=== PATIENT | female | born 1970 | race Caucasian/White ===

== ENCOUNTER 2020-10-20 10:32 | Inpatient (IN) ==
[2020-10-20] MEDS ORDERED: INSULIN REGULAR, HUMAN 1 UNIT/0.01 ML UNIT IV ONE (10:50)
[2020-10-20] MEDS ORDERED: 0.9 % SODIUM CHLORIDE 1,000 ML IV ONE ×2 (10:50→12:15)
[2020-10-20] MEDS ORDERED: ONDANSETRON 4 MG/2 ML VIAL IV ONE (10:52)
[2020-10-20] MEDS ORDERED: METOCLOPRAMIDE 10 MG/2 ML VIAL IV ONE (11:20)
--- NOTE | 2020-10-20 11:23 | Emergency Department Note ---
Nausea/Vomiting/Diarrhea HPI General Chief complaint: Nausea/Vomiting/Diarrhea Stated complaint: n/v, diabetic Time Seen by Provider: 10/20/20 10:50 Source: patient and EMS Mode of arrival: EMS Limitations: no limitations History of Present Illness HPI Narrative: Narrative: 50-year-old female comes in complaining of a 24-hour history of nausea vomiting and small amount of diarrhea. She has not been able to take her home medicines including insulin. Denies fever. Has some belly pain. Unknown trigger Related Data Home Medications Medication Instructions Recorded Confirmed ascorbic acid-collagen 1 cap PO QDAY 04/28/20 07/17/20 metformin 500 mg tablet 1,000 mg PO BID tab 07/17/20 10/20/20 paroxetine HCl 20 mg tablet 40 mg PO QDAY tab 07/17/20 10/20/20 hydroxyzine HCl 25 mg PO BID PRN 10/20/20 10/20/20 Previous Rx's Medication Instructions Recorded losartan 50 mg tablet 50 mg PO QDAY #90 tab 04/28/20 gabapentin 300 mg capsule 600 mg PO TID 30 Days #180 cap 05/15/20 blood sugar diagnostic #100 each 07/17/20 blood-glucose meter #1 each 07/17/20 empagliflozin 10 mg tablet 10 mg PO QAM #30 tab 07/17/20 ezetimibe 10 mg tablet 10 mg PO QDAY #30 tab 07/17/20 pregabalin 75 mg capsule 75 mg PO BID #60 cap 07/17/20 bupropion HCl 150 mg tablet,12 hr 150 mg PO BID #180 each 09/22/20 sustained-release insulin degludec 100 unit/mL (3 20 unit SUB-Q QHS #15 ml 09/25/20 mL) subcutaneous pen Allergies Allergy/AdvReac Type Severity Reaction Status Date / Time semaglutide [From Ozempic] Allergy Severe Vomiting Verified 10/20/20 10:35 lisinopril AdvReac Unknown Cough Verified 10/20/20 10:35 Rgylhjp-[id number]-Jwh Reductase AdvReac Unknown Cold Sweats Verified 10/20/20 10:35 Inhibitor Review of Systems ROS ROS Narrative: Narrative: All systems ED: reviewed and negative except as stated. PFSH Narrative Patient History Narrative: Narrative: Medical/Surgical/Family History All Active Problems (Updated 10/20/20 @ 13:05 by Lucien Alberto MD) DKA (diabetic ketoacidoses) (Acute) Gastroenteritis (Acute) Acute hyperkalemia (Acute) Acute kidney injury (Acute) Acute pancreatitis (Acute) Numbness in both hands (Acute) Pyogenic granuloma (Acute) Kidney stones (Acute) Joint pain (Acute) High cholesterol (Acute) Hypertension (Acute) Type 2 diabetes mellitus (Acute) Depression (Acute) Anxiety (Acute) Cellulitis of second toe of right foot (Acute) Medical History Anxiety (Acute) Depression (Acute) High cholesterol (Acute) Hypertension (Acute) Joint pain (Acute) Kidney stones (Acute) Pyogenic granuloma (Acute) Type 2 diabetes mellitus (Acute) Surgical History History of 2 sections (Acute) 1994, 1997 History of knee surgery (Acute ~1983) History of removal of calculus of renal pelvis through percutaneous nephrostomy (Acute) History of tonsillectomy (Acute ~1985) History of total abdominal hysterectomy (Acute ~2000) still have ovaries Family History Father Esophageal cancer Type 2 diabetes mellitus High blood pressure Grandfather Mesothelioma Maternal Grandmother Dementia Paternal Congestive heart failure Maternal Mother Migraines Social History Smoking Status: Never smoker Alcohol Intake Frequency: does not drink Substance Use: marijuana Exam Narrative Narrative: Narrative: Overweight female some distress secondary to nausea and vomiting. Normocephalic atraumatic. No nasal discharge or congestion. Oropharynx with dry buccal mucosa. Neck is supple without lymphadenopathy or thyromegaly. Heart is regular rhythm but mildly tachycardic. Lungs are clear to auscultation bilaterally without wheezes rales rhonchi or respiratory distress. Abdomen is soft diffusely tender. No pedal edema. She is alert oriented but distraught secondary to her medical situation General Limitations: no limitations Course Vital Signs Vital signs: Vital Signs Temperature 97.7 F 10/20/20 10:33 Pulse Rate 102 H 10/20/20 10:33 Respiratory Rate 22 10/20/20 10:33 Blood Pressure 118/65 10/20/20 10:33 Pulse Oximetry (%) 98 10/20/20 10:33 Temperature 97.7 F 10/20/20 10:33 Pulse Rate 106 H 10/20/20 14:46 Respiratory Rate 27 H 10/20/20 14:16 Blood Pressure 146/72 10/20/20 14:46 Pulse Oximetry (%) 100 10/20/20 14:46 MDM MDM Narrative Medical decision making narrative: Narrative: Concern for gastroenteritis causing DKA or hyperosmolar situation. Work-up and laboratory x-ray. Start IV fluids Zofran and insulin 10 units Blood sugar went from 438 to 325 with the insulin dose. ABG consistent with severe DKA pH 7.10. Start insulin drip after bolus above. She will require ICU admission. Repeat ABG after 2 hours shows pH of 7.17 PCO2 of 14 and PO2 of 104. This is a significant improvement. Repeat chemistries show improvement as well. I briefly discussed test results with the patient and advised her she would need to come in the hospital. Discussed the case with Dr. Bryant, our hospitalist, who agreed to accept the patient for further care and evaluation in the hospital Lab Data Lab results reviewed: Yes I reviewed the patient's lab results. Lab results narrative: ABG shows a pH 7.10 PCO2 of 13 PO2 of 118 not on any oxygen Result diagrams: 10/20/20 11:00 10/20/20 11:00 Labs: Lab Results 10/20/20 10/20/20 10/20/20 Range/Units 10:38 10:38 11:00 WBC (4.5-11.0) K/mcL RBC (4.00-5.20) M/mcL Hgb (12.0-15.0) g/dL Hct (36.0-48.0) % POC Hct (36-48) % MCV (80.0-100.0) fL MCH (26.0-34.0) pg MCHC (31.0-36.0) g/dL RDW (11.5-14.5) % Plt Count (140-440) K/mcL MPV (7.4-10.4) fL Neut % (Auto) (38.0-78.0) % Lymph % (Auto) (15.0-49.0) % [place] % (Auto) (1.0-12.0) % Eos % (Auto) (0.0-7.0) % Baso % (Auto) (0.0-2.0) % Lymph # (Auto) (1.50-4.80) K/mcL [place] # (Auto) (0.10-0.90) K/mcL Eos # (Auto) (0.00-0.70) K/mcL Baso # (Auto) (0.00-0.20) K/mcL Absolute Neutrophils (1.80-8.00) K/mcL VBG Lactic Acid 1.9 (0.5-2.0) mmol/L POC Sodium (133-145) mEq/L Sodium 131 L (133-145) mmol/L POC Potassium (3.3-5.1) mEql/L Potassium 6.0 H* (3.3-5.1) mmol/L POC Chloride (96-108) mEq/L Chloride 93 L (96-108) mmol/L Carbon Dioxide 6 L* (22-30) mmol/L POC Total CO2 (22-30) mmol/L Anion Gap 32.0 H (8.0-16.0) POC BUN (6-20) mg/dL BUN 38 H (6-20) mg/dL Creatinine 1.8 H (0.6-1.1) mg/dL POC Creatinine (0.6-1.2) mg/dL GFR Calculation 32 Glucose 450 H (70-105) mg/dL POC Glucose (70-105) mg/dL Calcium 8.7 (8.6-10.4) mg/dL POC WB Ioniz Calcium (1.16-1.32) mmEq/L Total Bilirubin 0.4 (0.1-1.0) mg/dL AST 26 (<32) U/L ALT 15 (<40) U/L Alkaline Phosphatase 160 H (39-117) U/L Total Protein 8.0 (5.9-8.4) gm/dL Albumin 4.4 (3.2-5.2) gm/dL Globulin 3.6 (2.2-3.7) gm/dL Albumin/Globulin Ratio 1.2 (1.0-2.3) Lipase 298 H (7-60) U/L Urine Color Urine Appearance (Clear) Urine pH (5.0-9.0) Ur Specific [place] (1.000-1.035) Urine Protein (Negative) mg/dL Urine Glucose (UA) (Negative) mg/dL Urine Ketones (Negative) mg/dL Urine Occult Blood (Negative) mg/dL Urine Nitrate (Negative) Urine Bilirubin (Negative) mg/dL Urine Urobilinogen mg/dL Ur Leukocyte Esterase (Negative) /ug Urine RBC (0-3) /hpf Urine WBC (0-4) /hpf Ur Squamous Epith Cells (0-4) /hpf Ur Transition Epith Cell (0-2) /hpf Urine Bacteria (0) /hpf Hyaline Casts (0-2) /lph Urine Mucus (None) /hpf Urine Yeast (Budding) (None) /hpf Ur Culture Indicated? 10/20/20 10/20/20 10/20/20 Range/Units 11:00 13:03 13:50 WBC 45.0 H* (4.5-11.0) K/mcL RBC 5.77 H (4.00-5.20) M/mcL Hgb 16.6 H (12.0-15.0) g/dL Hct 51.8 H (36.0-48.0) % POC Hct 49 H (36-48) % MCV 89.8 (80.0-100.0) fL MCH 28.8 (26.0-34.0) pg MCHC 32.0 (31.0-36.0) g/dL RDW 12.8 (11.5-14.5) % Plt Count 479 H (140-440) K/mcL MPV 10.3 (7.4-10.4) fL Neut % (Auto) 82.7 H (38.0-78.0) % Lymph % (Auto) 10.5 L (15.0-49.0) % [place] % (Auto) 6.1 (1.0-12.0) % Eos % (Auto) 0 (0.0-7.0) % Baso % (Auto) 0.7 (0.0-2.0) % Lymph # (Auto) 4.71 (1.50-4.80) K/mcL [place] # (Auto) 2.76 H (0.10-0.90) K/mcL Eos # (Auto) 0.01 (0.00-0.70) K/mcL Baso # (Auto) 0.31 H (0.00-0.20) K/mcL Absolute Neutrophils 37.25 H (1.80-8.00) K/mcL VBG Lactic Acid (0.5-2.0) mmol/L POC Sodium 136 (133-145) mEq/L Sodium (133-145) mmol/L POC Potassium 5.1 (3.3-5.1) mEql/L Potassium (3.3-5.1) mmol/L POC Chloride 112 H (96-108) mEq/L Chloride (96-108) mmol/L Carbon Dioxide (22-30) mmol/L POC Total CO2 10 L (22-30) mmol/L Anion Gap (8.0-16.0) POC BUN 37 H (6-20) mg/dL BUN (6-20) mg/dL Creatinine (0.6-1.1) mg/dL POC Creatinine 1.2 (0.6-1.2) mg/dL GFR Calculation Glucose (70-105) mg/dL POC Glucose 278 H (70-105) mg/dL Calcium (8.6-10.4) mg/dL POC WB Ioniz Calcium 1.10 L (1.16-1.32) mmEq/L Total Bilirubin (0.1-1.0) mg/dL AST (<32) U/L ALT (<40) U/L Alkaline Phosphatase (39-117) U/L Total Protein (5.9-8.4) gm/dL Albumin (3.2-5.2) gm/dL Globulin (2.2-3.7) gm/dL Albumin/Globulin Ratio (1.0-2.3) Lipase (7-60) U/L Urine Color Yellow Urine Appearance Clear (Clear) Urine pH 5.0 (5.0-9.0) Ur Specific [place] 1.017 (1.000-1.035) Urine Protein 100 A (Negative) mg/dL Urine Glucose (UA) >=500 A (Negative) mg/dL Urine Ketones 80 A (Negative) mg/dL Urine Occult Blood >=1.0 A (Negative) mg/dL Urine Nitrate Negative (Negative) Urine Bilirubin Negative (Negative) mg/dL Urine Urobilinogen Negative mg/dL Ur Leukocyte Esterase Negative (Negative) /ug Urine RBC 32 H (0-3) /hpf Urine WBC 4 (0-4) /hpf Ur Squamous Epith Cells 2 (0-4) /hpf Ur Transition Epith Cell < 1 (0-2) /hpf Urine Bacteria None (0) /hpf Hyaline Casts 4 H (0-2) /lph Urine Mucus Few A (None) /hpf Urine Yeast (Budding) Few A (None) /hpf Ur Culture Indicated? Yes Radiology Data Radiology results reviewed: Yes I reviewed the patient's radiology results. Radiology results narrative: Abdominal x-ray series shows possible porcelain gallbladder so ultrasound was ordered Discharge Plan Patient/Caregiver Discharge Instructions Pt seen by [employer]/PA only: No Clinical Impression: Gastroenteritis, Acute hyperkalemia, Acute kidney injury DKA (diabetic ketoacidoses) Qualifiers: Diabetes mellitus type: type 2 Diabetes mellitus complication detail: without coma Qualified Code(s): E11.10 - Type 2 diabetes mellitus with ketoacidosis without coma Acute pancreatitis Qualifiers: Pancreatitis type: unspecified pancreatitis type Acute pancreatitis complication: unspecified Qualified Code(s): K85.90 - Acute pancreatitis without necrosis or infection, unspecified Patient Disposition: Xfer As Inpt ([facility]) Condition: Fair Follow up with: Arlene Colin PA-C [Primary Care Provider] - Prescriptions: No Action gabapentin 300 mg capsule 600 mg PO TID 30 Days Qty: 180 RF: 2 bupropion HCl [Wellbutrin SR] 150 mg tablet sustained-release 12 hr 150 mg PO BID Qty: 180 RF: 1 Tresiba FlexTouch U-100 100 unit/mL (3 mL) insulin pen 20 unit SUB-Q QHS Qty: 15 RF: 1 paroxetine HCl 20 mg tablet 40 mg PO QDAY RF: 0 ascorbic acid-collagen 1 cap PO QDAY RF: 0 losartan 50 mg tablet 50 mg PO QDAY Qty: 90 RF: 3 metformin 500 mg tablet 1,000 mg PO BID RF: 0 ezetimibe [Zetia] 10 mg tablet 10 mg PO QDAY Qty: 30 RF: 4 (DME) blood-glucose meter Misc See Rx Instructions .ROUTE .MEDSUPPLY Qty: 1 RF: 0 (DME) Blood Glucose Test Strip See Rx Instructions .ROUTE .MEDSUPPLY Qty: 100 RF: 2 Jardiance 10 mg tablet 10 mg PO QAM Qty: 30 RF: 2 pregabalin 75 mg capsule 75 mg PO BID Qty: 60 RF: 2 hydroxyzine HCl 25 mg Tablet 25 mg PO BID PRN (Reason: Anxiety) RF: 0
[2020-10-20] MEDS ORDERED: INSULIN REGULAR, HUMAN 50 UNIT in 0.9 % SODIUM CHLORIDE 99.5 ML IV SCH ×2 (12:00→16:45)
--- NOTE | 2020-10-20 12:22 | XRay Report ---
CLINICAL INFORMATION: nausea and vomiting COMPARISON: None. FINDINGS: Stool gas pattern is normal. No free air, soft tissue mass or organomegaly. There is a large amount calcification in the gallbladder. This either represents porcelain gallbladder or, perhaps, contrast from a prior outside radiologic study which was excreted into the gallbladder and now outlines large stones. Consider ultrasound IMPRESSION: Porcelain gallbladder versus cholelithiasis. Suggest gallbladder ultrasound Interpreted and Authenticated by: Efraín Khan 10/20/20
[2020-10-20 12:48] LABS: Basophils # (Auto) 0.31 K/mcL (0.00-0.20); Basophils % (Auto) 0.7 % (0.0-2.0); Eosinophils # (Auto) 0.01 K/mcL (0.00-0.70); Eosinophils % (Auto) 0 % (0.0-7.0); Hematocrit 51.8 % (36.0-48.0); Hemoglobin 16.6 g/dL (12.0-15.0); Lymphocytes # (Auto) 4.71 K/mcL (1.50-4.80); Lymphocytes % (Auto) 10.5 % (15.0-49.0); Mean Cell Volume 89.8 fL (80.0-100.0); Mean Platelet Volume 10.3 fL (7.4-10.4); Monocytes # (Auto) 2.76 K/mcL (0.10-0.90); Monocytes % (Auto) 6.1 % (1.0-12.0); Neutrophils % (Auto) 82.7 % (38.0-78.0); Platelet Count 479 K/mcL (140-440); RBC 5.77 M/mcL (4.00-5.20); Red Cell Distribution Width 12.8 % (11.5-14.5)
[2020-10-20 13:01] LABS: ALT/SGPT 15 U/L (<40); AST/SGOT 26 U/L (<32); Albumin 4.4 gm/dL (3.2-5.2); Albumin/Globulin Ratio 1.2 (1.0-2.3); Alkaline Phosphatase 160 U/L (39-117); Bilirubin,Total 0.4 mg/dL (0.1-1.0); Blood Urea Nitrogen 38 mg/dL (6-20); Calcium 8.7 mg/dL (8.6-10.4); Carbon Dioxide 6 mmol/L (22-30); Chloride 93 mmol/L (96-108); Globulin 3.6 gm/dL (2.2-3.7); Glomerular Filtration Rate 32; Glucose 450 mg/dL (70-105)
--- NOTE | 2020-10-20 13:19 | Ultrasound Report ---
CLINICAL INFORMATION: Abdominal pain. Large gallstone versus porcelain gallbladder on plain film COMPARISON: Abdominal x-ray 10/20/2020 FINDINGS: The gallbladder wall is normal thickness - 3 mm. No evidence of porcelain gallbladder. There are multiple stones filling the gallbladder: The stone conglomerate spans 8 x 3.4 cm. Common bile duct is normal - 6 mm. The liver is normal in size and echotexture. Pancreas is normal. There is no free fluid. IMPRESSION: Cholelithiasis with multiple large stones packing the gallbladder. Interpreted and Authenticated by: Efraín Khan 10/20/20
[2020-10-20 13:30] LABS: POC Blood Urea Nitrogen 37 mg/dL (6-20); POC CO2 10 mmol/L (22-30); POC Chloride 112 mEq/L (96-108); POC Creatinine 1.2 mg/dL (0.6-1.2); POC Glucose, Random 278 mg/dL (70-105); POC Hematocrit 49 % (36-48); POC Potassium 5.1 mEql/L (3.3-5.1); POC Sodium 136 mEq/L (133-145)
--- NOTE | 2020-10-20 14:46 | Internal Med History&Physical ---
HPI History of Present Illness Patient information: Note initiated : 10/20/20 at 2:37 pm Service Date, if different from initiated Date: [] Patient: Starla Lopes a 50 y/o F admitted on for n/v, diabetic. Chief Complaint: [] History of present illness: Ms. Lopes is a 50 year old F Presents the ED with nausea vomiting abdominal pain. EMS reported blood sugar 432. Patient states that she has been feeling ill for the past couple days with abdominal discomfort and then nausea vomiting. She has not taken her insulin for couple days since it started. She is abdominal pain is sharp and nonradiating. Sound did show gallbladder stones and I tried to obtain history of whether not she is had biliary colic but hard to get much of history given her lethargy. She is quite acidotic pH 7.17 bicarb of 6. She was hyponatremic pseudo-. And h yperkalemic. An acute injury. Most of these numbers improved on a [id number] 4 hours later. She is given several liters of IV fluid bolus and placed on insulin drip. Review of Systems: Pertinent positives above, including headache. Denies fever/chills/chest pain/cough/dyspnea/diarrhea. Remaining 10 point review of system reviewed negative PFSH PFSH All Active Problems (Updated 10/20/20 @ 13:05 by Lucien Alberto MD) DKA (diabetic ketoacidoses) (Acute) Gastroenteritis (Acute) Acute hyperkalemia (Acute) Acute kidney injury (Acute) Acute pancreatitis (Acute) Numbness in both hands (Acute) Pyogenic granuloma (Acute) Kidney stones (Acute) Joint pain (Acute) High cholesterol (Acute) Hypertension (Acute) Type 2 diabetes mellitus (Acute) Depression (Acute) Anxiety (Acute) Cellulitis of second toe of right foot (Acute) Medical History Anxiety (Acute) Depression (Acute) High cholesterol (Acute) Hypertension (Acute) Joint pain (Acute) Kidney stones (Acute) Pyogenic granuloma (Acute) Type 2 diabetes mellitus (Acute) Surgical History History of 2 sections (Acute) 1994, 1997 History of knee surgery (Acute ~1983) History of removal of calculus of renal pelvis through percutaneous nephrostomy (Acute) History of tonsillectomy (Acute ~1985) History of total abdominal hysterectomy (Acute ~2000) still have ovaries Family History Father Esophageal cancer Type 2 diabetes mellitus High blood pressure Grandfather Mesothelioma Maternal Grandmother Dementia Paternal Congestive heart failure Maternal Mother Migraines Social History marital status: occupational status: employed occupation: [employer] smoking status: Never smoker alcohol intake frequency: does not drink substance use type: marijuana MEDS/ALLERGIES Home Medications and Allergies Home Medications Medication Instructions Recorded Confirmed Type ascorbic acid-collagen 1 cap PO QDAY 04/28/20 07/17/20 History losartan 50 mg tablet 50 mg PO QDAY #90 tab 04/28/20 10/20/20 Rx gabapentin 300 mg capsule 600 mg PO TID 30 Days #180 cap 05/15/20 10/20/20 Rx blood sugar diagnostic #100 each 07/17/20 07/17/20 Rx blood-glucose meter #1 each 07/17/20 07/17/20 Rx empagliflozin 10 mg tablet 10 mg PO QAM #30 tab 07/17/20 10/20/20 Rx ezetimibe 10 mg tablet 10 mg PO QDAY #30 tab 07/17/20 10/20/20 Rx metformin 500 mg tablet 1,000 mg PO BID tab 07/17/20 10/20/20 History paroxetine HCl 20 mg tablet 40 mg PO QDAY tab 07/17/20 10/20/20 History pregabalin 75 mg capsule 75 mg PO BID #60 cap 07/17/20 07/17/20 Rx bupropion HCl 150 mg tablet,12 hr 150 mg PO BID #180 each 09/22/20 Rx sustained-release insulin degludec 100 unit/mL (3 20 unit SUB-Q QHS #15 ml 09/25/20 Rx mL) subcutaneous pen hydroxyzine HCl 25 mg PO BID PRN 10/20/20 10/20/20 History Allergies Allergy/AdvReac Type Severity Reaction Status Date / Time semaglutide [From Ozempic] Allergy Severe Vomiting Verified 10/20/20 10:35 lisinopril AdvReac Unknown Cough Verified 10/20/20 10:35 Tfjwbyp-Fpg-Sdg Reductase AdvReac Unknown Cold Sweats Verified 10/20/20 10:35 Inhibitor EXAM Constitutional Vitals: Temp Pulse Resp BP Pulse Ox 97.7 F 102 H 27 H 153/66 100 10/20/20 10:33 10/20/20 14:31 10/20/20 14:16 10/20/20 14:31 10/20/20 14:31 Exam: General: Sleeping but awakens, No acute Distress, obese Eyes/N/T: EOMI, PERRL, dry MM Head/Neck: neck supple, normocephalic atraumatic CV: Mildly tachycardic but regular, No murmurs, normal s1/s2 Pulm: Clear b/l, no wheezing/rhonchi/rales Abd: soft, nontender, +BS x4 Ext: no clubbing/cyanosis/edema Neuro: Lethargic, no focal deficits, moves all extremities, CN 2-12 grossly intact, symmetrical strength b/l upper/lower, sensations intact b/l upper/lower Skin: warm/dry DATA Data Completed and Pending Labs: Labs from last 24 hours 10/20/20 10/20/20 10/20/20 13:50 13:03 11:00 WBC 45.0 H* RBC 5.77 H Hgb 16.6 H Hct 51.8 H POC Hct 49 H MCV 89.8 MCH 28.8 MCHC 32.0 RDW 12.8 Plt Count 479 H MPV 10.3 Neut % (Auto) 82.7 H Lymph % (Auto) 10.5 L [place] % (Auto) 6.1 Eos % (Auto) 0 Baso % (Auto) 0.7 Lymph # (Auto) 4.71 [place] # (Auto) 2.76 H Eos # (Auto) 0.01 Baso # (Auto) 0.31 H Absolute Neutrophils 37.25 H VBG Lactic Acid POC Sodium 136 Sodium POC Potassium 5.1 Potassium POC Chloride 112 H Chloride Carbon Dioxide POC Total CO2 10 L Anion Gap POC BUN 37 H BUN Creatinine POC Creatinine 1.2 GFR Calculation Glucose POC Glucose 278 H Hemoglobin A1c Estim Average Glucose Calcium POC WB Ioniz Calcium 1.10 L Total Bilirubin AST ALT Alkaline Phosphatase Total Protein Albumin Globulin Albumin/Globulin Ratio Lipase Beta-Hydroxybutyrate Urine Color Pending Urine Appearance Pending Urine pH Pending Ur Specific [place] Pending Urine Protein Pending Urine Glucose (UA) Pending Urine Ketones Pending Urine Occult Blood Pending Urine Nitrate Pending Urine Bilirubin Pending Urine Urobilinogen Pending Ur Leukocyte Esterase Pending 10/20/20 10/20/20 10/20/20 11:00 10:38 10:38 WBC RBC Hgb Hct POC Hct MCV MCH MCHC RDW Plt Count MPV Neut % (Auto) Lymph % (Auto) [place] % (Auto) Eos % (Auto) Baso % (Auto) Lymph # (Auto) [place] # (Auto) Eos # (Auto) Baso # (Auto) Absolute Neutrophils VBG Lactic Acid 1.9 POC Sodium Sodium 131 L POC Potassium Potassium 6.0 H* POC Chloride Chloride 93 L Carbon Dioxide 6 L* POC Total CO2 Anion Gap 32.0 H POC BUN BUN 38 H Creatinine 1.8 H POC Creatinine GFR Calculation 32 Glucose 450 H POC Glucose Hemoglobin A1c Pending Estim Average Glucose Pending Calcium 8.7 POC WB Ioniz Calcium Total Bilirubin 0.4 AST 26 ALT 15 Alkaline Phosphatase 160 H Total Protein 8.0 Albumin 4.4 Globulin 3.6 Albumin/Globulin Ratio 1.2 Lipase 298 H Beta-Hydroxybutyrate Pending Urine Color Urine Appearance Urine pH Ur Specific [place] Urine Protein Urine Glucose (UA) Urine Ketones Urine Occult Blood Urine Nitrate Urine Bilirubin Urine Urobilinogen Ur Leukocyte Esterase A/P Narrative A/P Narrative: A: *DKA: ?etiology *Anion gap metabolic acidosis: 2/2 above *Encephalopathy (lethargy): 2/2 above *Leukocytosis: Likely reactive versus other, afebrile *Hyperkalemia: Resolved on point of care with IV fluids and insulin *LAMAR on likely CKD II: *obese: *?biliary colic w/multiple large stones: difficult to obtain history at this time * P: -aggressive IVF -insulin gtt -monitor electrolytes -check manual differential and procalcitonin and bc -a1c -f/u bhb/vbg -Clarify and update home medications -f/u with surgery for symptomatic cholelithiasis -ppx: Lovenox Full code Time Spent With Patient Time: Total time spent is greater than 50% in coordination of care (as documented) at patient's floor/unit and/or counseling patient:
[2020-10-20 14:47] LABS: Appearance,Urine CLEAR (Clear); Bilirubin,Urine Negative (Negative); Color,Urine YELLOW; Culture Indicated,Urine Yes; Glucose,Urine (UA) >=500 mg/dL (Negative); Ketones,Urine 80 mg/dL (Negative); Leukocyte Esterase,Urine Negative /ug (Negative); Mucus,Urine FEW /hpf; Nitrate,Urine Negative (Negative); Protein,Urine 100 mg/dL (Negative); Specific Gravity,Urine 1.017 (1.000-1.035); Urine Blood >=1.0 mg/dL (Negative); Urine Budding Yeast Few /hpf; Urine Hyaline Cast 4 /lph (0-2); Urine RBC 32 /hpf (0-3); Urine Squamous Epithelial Cell 2 /hpf (0-4); Urine Transitional Epi Cells < 1 /hpf (0-2); Urine WBC 4 /hpf (0-4); Urobilinogen,Urine Negative
[2020-10-20 15:13] LABS: Phosphorous 3.1 mg/dL (2.5-4.5)
[2020-10-20] MEDS ORDERED: PIPERACILLIN SODIUM/TAZOBACTAM 3.375 GM in DEXTROSE 5% IN WATER 50 ML IV SCH (15:30)
[2020-10-20] MEDS ORDERED: 0.9 % SODIUM CHLORIDE 1,000 ML IV SCH (16:45)
[2020-10-20] MEDS ORDERED: hydrOXYzine 25 MG TABLET PO PRN ×2 (16:45→17:30)
[2020-10-20] MEDS ORDERED: ACETAMINOPHEN 325 MG TABLET PO PRN (16:45)
[2020-10-20] MEDS ORDERED: IPRATROPIUM/ALBUTEROL 3 ML AMPUL.NEB NEB PRN (16:45)
[2020-10-20] MEDS: GABAPENTIN 300 MG CAPSULE PO SCH ×2 (17:26→21:22)
[2020-10-20] MEDS: DEXTROSE 5%-NS 1,000 ML IV SCH ×3 (17:33→22:37)
[2020-10-20 17:55] LABS: Beta Hydroxybutyrate 6.77 mmol/L (<0.27); Estimated Average Glucose(eAG) 229 mg/dL; Hemoglobin A1C 9.6 % Hgb (4.0-6.0)
[2020-10-20] MEDS: PIPERACILLIN SODIUM/TAZOBACTAM 3.375 GM in DEXTROSE 5% IN WATER 50 ML IV SCH (20:22)
[2020-10-20] MEDS: DOCUSATE SODIUM 100 MG CAPSULE PO SCH (21:10)
[2020-10-20] MEDS ORDERED: POTASSIUM CHLORIDE 20 MEQ TABLET PO PRN (21:16)
[2020-10-20] MEDS ORDERED: MAGNESIUM SULFATE 2 GM/50 ML BAG IV PRN (21:16)
[2020-10-20] MEDS ORDERED: POTASSIUM CHLORIDE 40 MEQ in DEXTROSE 5% IN WATER 500 ML IV PRN (21:16)
[2020-10-20] MEDS: 0.9 % SODIUM CHLORIDE 10 ML SYRINGE IV SCH (22:37)
[2020-10-20] MEDS ORDERED: INSULIN GLARGINE, HUMAN 1 UNIT/0.01 ML SQ SCH (22:42)
[2020-10-20] MEDS ORDERED: INSULIN GLARGINE, HUMAN 1 UNIT/0.01 ML SQ ONE (23:04)
[2020-10-20 23:31] LABS: ALT/SGPT 11 U/L (<40); AST/SGOT 24 U/L (<32); Albumin 3.7 gm/dL (3.2-5.2); Albumin/Globulin Ratio 1.2 (1.0-2.3); Alkaline Phosphatase 116 U/L (39-117); Bilirubin,Direct < 0.2 mg/dL (<0.3); Bilirubin,Total 0.2 mg/dL (0.1-1.0); Blood Urea Nitrogen 27 mg/dL (6-20); Calcium 7.9 mg/dL (8.6-10.4); Carbon Dioxide 11 mmol/L (22-30); Chloride 108 mmol/L (96-108); Globulin 3.1 gm/dL (2.2-3.7); Glomerular Filtration Rate 48; Glucose 297 mg/dL (70-105); Lactate Dehydrogenase 251 U/L (135-225); Phosphorous 3.2 mg/dL (2.5-4.5); Triglycerides 194 mg/dL (<150); Uric Acid 9.3 mg/dL (2.5-8.0)
[2020-10-21] MEDS: PIPERACILLIN SODIUM/TAZOBACTAM 3.375 GM in DEXTROSE 5% IN WATER 50 ML IV SCH ×5 (00:09→23:55)
[2020-10-21] MEDS: ONDANSETRON 4 MG/2 ML VIAL IV PRN ×5 (00:22→20:35)
[2020-10-21] MEDS: DEXTROSE 5%-NS 1,000 ML IV SCH (05:17)
[2020-10-21] MEDS: 0.9 % SODIUM CHLORIDE 10 ML SYRINGE IV SCH ×3 (05:29→22:03)
[2020-10-21 05:55] LABS: ABG Methemoglobin 0.1 % (0.4-1.5); Total Hemoglobin 13.9 gm/Dl (13.5-16.5); VBG Base Excess -13 (-2-3); VBG HCO3 12.4 mmol/L; VBG Oxygen Saturation 90.6 %; VBG PCO2 27.2 mmHg; VBG PH 7.28 U; VBG PO2 74.4 mmHg; VBG Total CO2 13.2 mmol/L
[2020-10-21 06:15] LABS: Hematocrit 45.4 % (36.0-48.0); Hemoglobin 14.1 g/dL (12.0-15.0); Mean Cell Volume 91.2 fL (80.0-100.0); Mean Corpuscular HGB Conc 31.1 g/dL (31.0-36.0); Mean Platelet Volume 9.8 fL (7.4-10.4); Platelet Count 259 K/mcL (140-440); RBC 4.98 M/mcL (4.00-5.20); Red Cell Distribution Width 13.5 % (11.5-14.5); WBC 18.3 K/mcL (4.5-11.0)
[2020-10-21 06:38] LABS: Beta Hydroxybutyrate 2.23 mmol/L (<0.27)
[2020-10-21] MEDS: DOCUSATE SODIUM 100 MG CAPSULE PO SCH ×2 (07:11→21:06)
--- NOTE | 2020-10-21 07:26 | Internal Med Progress Note ---
SUBJECTIVE Subjective Patient information: Note initiated : 10/21/20 at 7:20 am Service Date, if different from initiated Date: [] Patient: Starla Lopes a 50 y/o F admitted on 10/20/20 for n/v, diabetic. Chief Complaint: [] Interval history: History of present illness: Ms. Lopes is a 50 year old F Presents the ED with nausea vomiting abdominal pain. EMS reported blood sugar 432. Patient states that she has been feeling ill for the past couple days with abdominal discomfort and then nausea vomiting. She has not taken her insulin for couple days since it started. She is abdominal pain is sharp and nonradiating. Sound did show gallbladder stones and I tried to obtain history of whether not she is had biliary colic but hard to get much of history given her lethargy. She is quite acidotic pH 7.17 bicarb of 6. She was hyponatremic pseudo-. And hyperkalemic. An acute injury. Most of these numbers improved on a [id number] 4 hours later. She is given several liters of IV fluid bolus and placed on insulin drip. /5 Doing much better. Anion gap closed. More alert. Wean off insulin drip at home insulin. Review of Systems: denies headache/fever/chills/nausea/vomiting/chest or abdominal pain/cough/dyspnea/diarrhea. Otherwise see above. Constitutional Vitals: Vital Signs Temp Pulse Resp BP Pulse Ox 100.3 F H 101 H 22 137/72 99 10/21/20 07:01 10/20/20 16:45 10/21/20 07:01 10/21/20 07:01 10/21/20 07:01 Period Temp Pulse Resp BP Sys/Montesinos Pulse Ox Last 24 Hr 97.6 F-100.3 F 99-107 11-29 109-175/53-101 98-100 Intake and Output 10/20/20 10/21/20 10/21/20 21:59 05:59 13:59 Intake Total 1520 2537 399 Output Total 900 1650 400 Balance 620 887 -1 Weight 86.092 kg Intake & Output: Intake & Output 10/20/20 10/21/20 10/21/20 21:59 05:59 13:59 Intake Total 1520 2537 399 Output Total 900 1650 400 Balance 620 887 -1 Weight 86.092 kg Intake: IV 1280 2117 99 Sodium Chloride 0.9% 1,000 ml @ 1196 250 mls/hr IV .Q4H MEGHANN Rx#: [id number] Dextrose 5%-Ns IV Solution 1, 2000 000 ml @ 150 mls/hr IV .Q6H40M MEGHANN Rx#:[id number] HumuLIN R 50 UNIT In Sodium 34 17 49 Chloride 0.9% 99.5 ml @ 2 UNIT/ HR 4 mls/hr IV DUR MEGHANN Rx#: [id number] Zosyn 3.375 gm In Dextrose 5% 50 100 50 in Water 50 ml @ 100 mls/hr IV Q6H MEGHANN Rx#:[id number] Oral 240 420 300 Output: Void Amount 900 1650 400 Other: Urine Appearance Clear Urine Color Pale Urine Odor Normal Exam: General: Sleeping but awakens easily, No acute Distress, obese Eyes/N/T: EOMI, Head/Neck: neck supple, CV: Mildly tachycardic but regular, No murmurs, Pulm: Clear b/l, no wheezing/rhonchi/rales Abd: soft, nontender, +BS x4 Ext: no clubbing/cyanosis/edema Neuro: more alert today, no focal deficits, moves all extremities, Skin: warm/dry OBJ DATA Labs CBC & Chem 7: 10/21/20 05:26 10/21/20 05:26 Labs: Abnormal Lab Results 10/21/20 10/21/20 10/21/20 05:26 05:26 05:26 WBC 18.3 H RBC Hgb Hct POC Hct Plt Count Neut % (Auto) Lymph % (Auto) [place] # (Auto) Baso # (Auto) Absolute Neutrophils ABG Methemoglobin VBG Base Excess Carboxyhemoglobin Sodium Potassium POC Chloride Chloride Carbon Dioxide POC Total CO2 Anion Gap POC BUN BUN Creatinine Glucose POC Glucose Hemoglobin A1c Uric Acid Calcium POC WB Ioniz Calcium Alkaline Phosphatase Lactate Dehydrogenase Triglycerides Lipase Beta-Hydroxybutyrate 2.23 H Procalcitonin 0.52 H Urine Protein Urine Glucose (UA) Urine Ketones Urine Occult Blood Urine RBC Hyaline Casts Urine Mucus Urine Yeast (Budding) 10/21/20 10/20/20 10/20/20 05:26 22:19 13:50 WBC RBC Hgb Hct POC Hct Plt Count Neut % (Auto) Lymph % (Auto) [place] # (Auto) Baso # (Auto) Absolute Neutrophils ABG Methemoglobin 0.1 L VBG Base Excess -13 L Carboxyhemoglobin 4.8 H Sodium Potassium POC Chloride Chloride Carbon Dioxide 11 L POC Total CO2 Anion Gap POC BUN BUN 27 H Creatinine 1.3 H Glucose 297 H POC Glucose Hemoglobin A1c Uric Acid 9.3 H Calcium 7.9 L POC WB Ioniz Calcium Alkaline Phosphatase Lactate Dehydrogenase 251 H Triglycerides 194 H Lipase Beta-Hydroxybutyrate Procalcitonin Urine Protein 100 A Urine Glucose (UA) >=500 A Urine Ketones 80 A Urine Occult Blood >=1.0 A Urine RBC 32 H Hyaline Casts 4 H Urine Mucus Few A Urine Yeast (Budding) Few A 10/20/20 10/20/20 10/20/20 13:03 13:03 11:00 WBC 45.0 H* RBC 5.77 H Hgb 16.6 H Hct 51.8 H POC Hct 49 H Plt Count 479 H Neut % (Auto) 82.7 H Lymph % (Auto) 10.5 L [place] # (Auto) 2.76 H Baso # (Auto) 0.31 H Absolute Neutrophils 37.25 H ABG Methemoglobin VBG Base Excess Carboxyhemoglobin Sodium Potassium POC Chloride 112 H Chloride Carbon Dioxide POC Total CO2 10 L Anion Gap POC BUN 37 H BUN Creatinine Glucose POC Glucose 278 H Hemoglobin A1c Uric Acid Calcium POC WB Ioniz Calcium 1.10 L Alkaline Phosphatase Lactate Dehydrogenase Triglycerides Lipase Beta-Hydroxybutyrate Procalcitonin 0.98 H Urine Protein Urine Glucose (UA) Urine Ketones Urine Occult Blood Urine RBC Hyaline Casts Urine Mucus Urine Yeast (Budding) 10/20/20 10/20/20 11:00 10:38 WBC RBC Hgb Hct POC Hct Plt Count Neut % (Auto) Lymph % (Auto) [place] # (Auto) Baso # (Auto) Absolute Neutrophils ABG Methemoglobin VBG Base Excess Carboxyhemoglobin Sodium 131 L Potassium 6.0 H* POC Chloride Chloride 93 L Carbon Dioxide 6 L* POC Total CO2 Anion Gap 32.0 H POC BUN BUN 38 H Creatinine 1.8 H Glucose 450 H POC Glucose Hemoglobin A1c 9.6 H Uric Acid Calcium POC WB Ioniz Calcium Alkaline Phosphatase 160 H Lactate Dehydrogenase Triglycerides Lipase 298 H Beta-Hydroxybutyrate 6.77 H Procalcitonin Urine Protein Urine Glucose (UA) Urine Ketones Urine Occult Blood Urine RBC Hyaline Casts Urine Mucus Urine Yeast (Budding) Meds: Medications Acetaminophen (Tylenol) 650 mg PO Q4-6HP PRN PRN Reason: PAIN/FEVER > 101 Albuterol/Ipratropium (Duoneb) 3 ml NEB Q4HRT PRN PRN Reason: dyspnea Diagnostic Test (Pha) (Accu-Chek) 1 each FS Q1 [facility] Last Admin: 10/21/20 07:00 Dose: 1 each Documented by: Docusate Sodium (Colace) 100 mg PO BID [facility] Last Admin: 10/21/20 07:11 Dose: Not Given Documented by: Enoxaparin Sodium (Lovenox) 40 mg SQ DAILY [facility] Gabapentin (Neurontin) 600 mg PO TID [facility] Last Admin: 10/20/20 21:22 Dose: 600 mg Documented by: Hydroxyzine HCl (Atarax) 25 mg PO BIDP PRN PRN Reason: Anxiety Insulin Human Regular 50 unit/ (Sodium Chloride) 100 mls @ 4 mls/hr IV DUR [facility]; Protocol Last Admin: 10/21/20 07:12 Dose: 2 unit/hr, 4 mls/hr Documented by: Piperacillin Sod/Tazobactam (Sod 3.375 gm/ Dextrose) 50 mls @ 100 mls/hr IV Q6H [facility]; Protocol Last Infusion: 10/21/20 06:00 Dose: Infused Documented by: Potassium Chloride 40 meq/ (Dextrose) 520 mls @ 130 mls/hr IV UD PRN PRN Reason: Potassium < 3 Magnesium Sulfate (Magnesium Sulfate) 2 gm in 50 mls @ 50 mls/hr IV UD PRN PRN Reason: Magnesium </= 1.6 Dextrose/Sodium Chloride (Dextrose 5%-Ns Iv Solution) 1,000 mls @ 150 mls/hr IV .Q6H40M [facility] Last Admin: 10/21/20 05:17 Dose: 150 mls/hr Documented by: Insulin Glargine (Lantus) 20 unit SQ HS [facility] Last Admin: 10/20/20 22:57 Dose: 20 units Documented by: Ondansetron HCl (Zofran) 4 mg IV Q4-6HP PRN PRN Reason: Nausea And Vomiting Last Admin: 10/21/20 05:59 Dose: 4 mg Documented by: Paroxetine HCl (Paxil) 40 mg PO QDAY [facility] Empagliflozin [ Jardiance] 10 Mg Tablet 1 dose PO DAILY [facility] Potassium Chloride (Kdur) 40 meq PO UD PRN PRN Reason: Potssium is 3-3.5 Sodium Chloride (Saline Flush) 10 ml IV Q8 [facility] Last Admin: 10/21/20 05:29 Dose: Not Given Documented by: ABG Interpretation ABG results: 10/21/20 05:26 ABG Methemoglobin 0.1 L VBG pH 7.28 VBG pCO2 27.2 VBG pO2 74.4 VBG HCO3 12.4 VBG Total CO2 13.2 VBG O2 Saturation 90.6 VBG Base Excess -13 L A/P Narrative A/P Narrative: A: *DKA: ?etiology -A1c 9.6 -UA/CXR unremarkable, *Anion gap metabolic acidosis: 2/2 above -improved *Encephalopathy (lethargy): 2/2 above -improved *Leukocytosis: no bandemia, Likely reactive versus infectious, afebrile, *Hyperkalemia: Resolved on point of care with IV fluids and insulin *LAMAR on likely CKD II: -improving *obese: *?biliary colic w/multiple large stones: difficult to obtain history at this time * P: -IVF -insulin gtt to home basal insulin and metformin, SSI -titrate home insulin -monitor electrolytes -pending cxr looking for possible sources of infection -f/u with surgery for ?symptomatic cholelithiasis (difficult to obtain history from her) -ppx: Lovenox Full code Time Spent With Patient Time: Total time spent is greater than 50% in coordination of care (as documented) at patient's floor/unit and/or counseling patient: QUALITY VTE Deep Vein Thrombosis/Pulmonary Embolism Present on Admission: No
[2020-10-21 07:30] LABS: ALT/SGPT 18 U/L (<40); AST/SGOT 32 U/L (<32); Albumin 3.2 gm/dL (3.2-5.2); Alkaline Phosphatase 106 U/L (39-117); Bilirubin,Direct < 0.2 mg/dL (<0.3); Bilirubin,Total 0.2 mg/dL (0.1-1.0); Blood Urea Nitrogen 19 mg/dL (6-20); Carbon Dioxide 11 mmol/L (22-30); Chloride 112 mmol/L (96-108); Globulin 3.3 gm/dL (2.2-3.7); Glomerular Filtration Rate 59; Glucose 205 mg/dL (70-105); Lactate Dehydrogenase 382 U/L (135-225); Phosphorous 2.5 mg/dL (2.5-4.5); Triglycerides 187 mg/dL (<150)
[2020-10-21] MEDS ORDERED: metFORMIN 500 MG TABLET PO SCH (08:00)
[2020-10-21] MEDS: GABAPENTIN 300 MG CAPSULE PO SCH ×3 (08:09→21:06)
[2020-10-21 08:36] LABS: Lymphocytes % 8 % (15-49); Monocytes % (Manual) 4 % (1-12); Platelet Estimate NORMAL (Normal); RBC Morphology NORMAL (Normal); Segmented Neutrophils % 88 % (38-78)
[2020-10-21] MEDS ORDERED: DEXTROSE 50% 50 ML VIAL IV PRN ×2 (08:51→10:12)
[2020-10-21] MEDS ORDERED: DEXTROSE 31 GM ORAL.SUSP PO PRN ×2 (08:51→10:12)
[2020-10-21] MEDS ORDERED: PARoxetine 20 MG TABLET PO SCH (09:00)
[2020-10-21] MEDS ORDERED: ENOXAPARIN 40 MG/0.4 ML SYRINGE SQ SCH (09:00)
[2020-10-21] MEDS ORDERED: SODIUM BICARBONATE 650 MG TABLET PO SCH ×2 (09:00→21:00)
[2020-10-21] MEDS ORDERED: buPROPion 150 MG TAB.SR.12H PO SCH (09:00)
[2020-10-21] MEDS ORDERED: INSULIN GLARGINE, HUMAN 1 UNIT/0.01 ML SQ ONE (09:10)
--- NOTE | 2020-10-21 09:21 | XRay Report ---
CLINICAL INFORMATION: Fever COMPARISON: None. TECHNIQUE: Portable FINDINGS: The heart size, mediastinum and pulmonary vessels are unremarkable. The lungs are clear. There are no effusions. The bones and soft tissues are within normal limits. IMPRESSION: Normal chest. Interpreted and Authenticated by: Efraín Khan 10/21/20
[2020-10-21] MEDS ORDERED: 0.45 % SODIUM CHLORIDE 1,000 ML IV SCH ×2 (09:30→10:12)
--- NOTE | 2020-10-21 10:02 | Discharge Summary ---
Discharge Provider Provider Patient information: Note initiated : 10/21/20 at 10:00 am Service Date, if different from initiated Date: [] Patient: Starla Lopes a 50 y/o F admitted on 10/20/20 for n/v, diabetic. Chief Complaint: [] Date of admission: 10/20/20 16:40 Primary care physician: Arlene Colin PA-C Consults: 10/20/20 Consult to Physician [CONS] Stat Comment: Consulting Provider: Nirmal Garcia Reason For Exam: Physician to Consult Discharge Meds Discharge Medications Home Medications ascorbic acid-collagen 1 cap PO QDAY 04/28/20 [History Confirmed 10/20/20 Last Taken Unknown] losartan 50 mg tablet 50 mg PO QDAY #90 tab 04/28/20 [Rx Confirmed 10/20/20 Last Taken Unknown] gabapentin 300 mg capsule 600 mg PO TID 30 Days #180 cap 05/15/20 [Rx Confirmed 10/20/20 Last Taken Unknown] blood sugar diagnostic #100 each 07/17/20 [Rx Confirmed 10/21/20 Last Taken Unknown] blood-glucose meter #1 each 07/17/20 [Rx Confirmed 10/21/20 Last Taken Unknown] empagliflozin 10 mg tablet 10 mg PO QAM #30 tab 07/17/20 [Rx Confirmed 10/20/20 Last Taken Unknown] ezetimibe 10 mg tablet 10 mg PO QDAY #30 tab 07/17/20 [Rx Confirmed 10/20/20 Last Taken Unknown] metformin 500 mg tablet 1,000 mg PO BID tab 07/17/20 [History Confirmed Last Taken Unknown] paroxetine HCl 20 mg tablet 40 mg PO QDAY tab 07/17/20 [History Confirmed 10/20/20 Last Taken Unknown] bupropion HCl 150 mg tablet,12 hr sustained-release 150 mg PO BID #180 each 09/22/20 [Rx Confirmed 10/20/20 Last Taken Unknown] hydroxyzine HCl 25 mg PO BID PRN 10/20/20 [History Confirmed 10/20/20 Last Taken Unknown] insulin degludec [Tresiba FlexTouch U-100] 22 unit SUB-Q QDAY #3 ml 10/23/20 [Rx Last Taken Unknown] COURSE Hospital Course Hospital course: History of present illness: Ms. Lopes is a 50 year old F Presents the ED with nausea vomiting abdominal pain. EMS reported blood sugar 432. Patient states that she has been feeling ill for the past couple days with abdominal discomfort and then nausea vomiting. She has not taken her insulin for couple days since it started. She is abdominal pain is sharp and nonradiating. Sound did show gallbladder stones and I tried to obtain history of whether not she is had biliary colic but hard to get much of history given her lethargy. She is quite acidotic pH 7.17 bicarb of 6. She was hyponatremic pseudo-. And h yperkalemic. An acute injury. Most of these numbers improved on a [id number] 4 hours later. She is given several liters of IV fluid bolus and placed on insulin drip. 10/21 Doing much better. Anion gap closed. More alert. Wean off insulin drip at home insulin. 10/22 Doing much better today. Sugars better controlled. Patient does have nausea but no other complaints. She does report she does get abdominal pain after fatty meals and does notice a difference between fatty meals and bland low-fat meal. Potassium phosphorus low. *DKA: ?etiology -A1c 9.6 -UA/CXR unremarkable, u/s no cholecystitis *Anion gap metabolic acidosis: 2/2 above -improved *Encephalopathy (lethargy): 2/2 above -improved *Leukocytosis: no bandemia, Likely reactive versus infectious, afebrile, *Hyperkalemia: Resolved on point of care with IV fluids and insulin *low phos *LAMAR on likely CKD II: -improving *obese: *Biliary colic w/multiple large stones: per pt history and clinical findings Discharge diagnosis: DKA Secondary discharge diagnosis: Acute kidney injury obesity possible biliary colic Time Spent with Patient Time attestation: Total time spent providing and/or coordinating discharge services: Time spent: Greater than 30 minutes EXAM Constitutional Vitals: Temp Pulse Resp BP Pulse Ox 100.0 F H 101 H 18 141/78 100 10/21/20 08:00 10/20/20 16:45 10/21/20 09:02 10/21/20 09:02 10/21/20 09:02 Discharge Data Data Completed and Pending Labs on day of discharge: Labs from last 24 hours 10/21/20 10/21/20 10/21/20 05:26 05:26 05:26 WBC RBC Hgb Hct POC Hct MCV MCH MCHC RDW Plt Count MPV Neut % (Auto) Lymph % (Auto) [place] % (Auto) Eos % (Auto) Baso % (Auto) Lymph # (Auto) [place] # (Auto) Eos # (Auto) Baso # (Auto) Seg Neutrophils % 88 H Lymphocytes % 8 L Monocytes % (Manual) 4 Absolute Neutrophils Platelet Estimate Normal RBC Morphology Normal ABG Methemoglobin VBG pH VBG pCO2 VBG pO2 VBG HCO3 VBG Total CO2 VBG O2 Saturation VBG Base Excess VBG Lactic Acid Carboxyhemoglobin Total Hemoglobin POC Sodium Sodium 134 POC Potassium Potassium 4.6 POC Chloride Chloride 112 H Carbon Dioxide 11 L POC Total CO2 Anion Gap 11.0 POC BUN BUN 19 Creatinine 1.1 POC Creatinine GFR Calculation 59 Glucose 205 H POC Glucose Hemoglobin A1c Estim Average Glucose Uric Acid 7.0 Calcium 8.0 L POC WB Ioniz Calcium Phosphorus 2.5 Magnesium 2.3 Total Bilirubin 0.2 Direct Bilirubin < 0.2 GGT 30 AST 32 H ALT 18 Alkaline Phosphatase 106 Lactate Dehydrogenase 382 H Total Protein 6.5 Albumin 3.2 Globulin 3.3 Albumin/Globulin Ratio 1.0 Triglycerides 187 H Lipase Beta-Hydroxybutyrate 2.23 H Procalcitonin 0.52 H Urine Color Urine Appearance Urine pH Ur Specific [place] Urine Protein Urine Glucose (UA) Urine Ketones Urine Occult Blood Urine Nitrate Urine Bilirubin Urine Urobilinogen Ur Leukocyte Esterase Urine RBC Urine WBC Ur Squamous Epith Cells Ur Transition Epith Cell Urine Bacteria Hyaline Casts Urine Mucus Urine Yeast (Budding) Ur Culture Indicated? 10/21/20 10/21/20 10/20/20 05:26 05:26 22:19 WBC 18.3 H RBC 4.98 Hgb 14.1 Hct 45.4 POC Hct MCV 91.2 MCH 28.3 MCHC 31.1 RDW 13.5 Plt Count 259 MPV 9.8 Neut % (Auto) Lymph % (Auto) [place] % (Auto) Eos % (Auto) Baso % (Auto) Lymph # (Auto) [place] # (Auto) Eos # (Auto) Baso # (Auto) Seg Neutrophils % Lymphocytes % Monocytes % (Manual) Absolute Neutrophils Platelet Estimate RBC Morphology ABG Methemoglobin 0.1 L VBG pH 7.28 VBG pCO2 27.2 VBG pO2 74.4 VBG HCO3 12.4 VBG Total CO2 13.2 VBG O2 Saturation 90.6 VBG Base Excess -13 L VBG Lactic Acid Carboxyhemoglobin 4.8 H Total Hemoglobin 13.9 POC Sodium Sodium 135 POC Potassium Potassium 4.4 POC Chloride Chloride 108 Carbon Dioxide 11 L POC Total CO2 Anion Gap 16.0 POC BUN BUN 27 H Creatinine 1.3 H POC Creatinine GFR Calculation 48 Glucose 297 H POC Glucose Hemoglobin A1c Estim Average Glucose Uric Acid 9.3 H Calcium 7.9 L POC WB Ioniz Calcium Phosphorus 3.2 Magnesium 2.0 Total Bilirubin 0.2 Direct Bilirubin < 0.2 GGT 31 AST 24 ALT 11 Alkaline Phosphatase 116 Lactate Dehydrogenase 251 H Total Protein 6.8 Albumin 3.7 Globulin 3.1 Albumin/Globulin Ratio 1.2 Triglycerides 194 H Lipase Beta-Hydroxybutyrate Procalcitonin Urine Color Urine Appearance Urine pH Ur Specific [place] Urine Protein Urine Glucose (UA) Urine Ketones Urine Occult Blood Urine Nitrate Urine Bilirubin Urine Urobilinogen Ur Leukocyte Esterase Urine RBC Urine WBC Ur Squamous Epith Cells Ur Transition Epith Cell Urine Bacteria Hyaline Casts Urine Mucus Urine Yeast (Budding) Ur Culture Indicated? 10/20/20 10/20/20 10/20/20 19:33 13:50 13:03 WBC RBC Hgb Hct POC Hct MCV MCH MCHC RDW Plt Count MPV Neut % (Auto) Lymph % (Auto) [place] % (Auto) Eos % (Auto) Baso % (Auto) Lymph # (Auto) [place] # (Auto) Eos # (Auto) Baso # (Auto) Seg Neutrophils % Lymphocytes % Monocytes % (Manual) Absolute Neutrophils Platelet Estimate RBC Morphology ABG Methemoglobin VBG pH VBG pCO2 VBG pO2 VBG HCO3 VBG Total CO2 VBG O2 Saturation VBG Base Excess VBG Lactic Acid Carboxyhemoglobin Total Hemoglobin POC Sodium Sodium POC Potassium Potassium POC Chloride Chloride Carbon Dioxide POC Total CO2 Anion Gap POC BUN BUN Creatinine POC Creatinine GFR Calculation Glucose POC Glucose Hemoglobin A1c Estim Average Glucose Uric Acid Calcium POC WB Ioniz Calcium Phosphorus 3.1 Magnesium 2.0 Total Bilirubin Direct Bilirubin GGT AST ALT Alkaline Phosphatase Lactate Dehydrogenase Total Protein Albumin Globulin Albumin/Globulin Ratio Triglycerides Lipase Beta-Hydroxybutyrate Procalcitonin Urine Color Yellow Urine Appearance Clear Urine pH 5.0 Ur Specific [place] 1.017 Urine Protein 100 A Urine Glucose (UA) >=500 A Urine Ketones 80 A Urine Occult Blood >=1.0 A Urine Nitrate Negative Urine Bilirubin Negative Urine Urobilinogen Negative Ur Leukocyte Esterase Negative Urine RBC 32 H Urine WBC 4 Ur Squamous Epith Cells 2 Ur Transition Epith Cell < 1 Urine Bacteria None Hyaline Casts 4 H Urine Mucus Few A Urine Yeast (Budding) Few A Ur Culture Indicated? Yes 10/20/20 10/20/20 10/20/20 13:03 13:03 11:00 WBC 45.0 H* RBC 5.77 H Hgb 16.6 H Hct 51.8 H POC Hct 49 H MCV 89.8 MCH 28.8 MCHC 32.0 RDW 12.8 Plt Count 479 H MPV 10.3 Neut % (Auto) 82.7 H Lymph % (Auto) 10.5 L [place] % (Auto) 6.1 Eos % (Auto) 0 Baso % (Auto) 0.7 Lymph # (Auto) 4.71 [place] # (Auto) 2.76 H Eos # (Auto) 0.01 Baso # (Auto) 0.31 H Seg Neutrophils % Lymphocytes % Monocytes % (Manual) Absolute Neutrophils 37.25 H Platelet Estimate RBC Morphology ABG Methemoglobin VBG pH VBG pCO2 VBG pO2 VBG HCO3 VBG Total CO2 VBG O2 Saturation VBG Base Excess VBG Lactic Acid Carboxyhemoglobin Total Hemoglobin POC Sodium 136 Sodium POC Potassium 5.1 Potassium POC Chloride 112 H Chloride Carbon Dioxide POC Total CO2 10 L Anion Gap POC BUN 37 H BUN Creatinine POC Creatinine 1.2 GFR Calculation Glucose POC Glucose 278 H Hemoglobin A1c Estim Average Glucose Uric Acid Calcium POC WB Ioniz Calcium 1.10 L Phosphorus Magnesium Total Bilirubin Direct Bilirubin GGT AST ALT Alkaline Phosphatase Lactate Dehydrogenase Total Protein Albumin Globulin Albumin/Globulin Ratio Triglycerides Lipase Beta-Hydroxybutyrate Procalcitonin 0.98 H Urine Color Urine Appearance Urine pH Ur Specific [place] Urine Protein Urine Glucose (UA) Urine Ketones Urine Occult Blood Urine Nitrate Urine Bilirubin Urine Urobilinogen Ur Leukocyte Esterase Urine RBC Urine WBC Ur Squamous Epith Cells Ur Transition Epith Cell Urine Bacteria Hyaline Casts Urine Mucus Urine Yeast (Budding) Ur Culture Indicated? 10/20/20 10/20/20 10/20/20 11:00 10:38 10:38 WBC RBC Hgb Hct POC Hct MCV MCH MCHC RDW Plt Count MPV Neut % (Auto) Lymph % (Auto) [place] % (Auto) Eos % (Auto) Baso % (Auto) Lymph # (Auto) [place] # (Auto) Eos # (Auto) Baso # (Auto) Seg Neutrophils % Lymphocytes % Monocytes % (Manual) Absolute Neutrophils Platelet Estimate RBC Morphology ABG Methemoglobin VBG pH VBG pCO2 VBG pO2 VBG HCO3 VBG Total CO2 VBG O2 Saturation VBG Base Excess VBG Lactic Acid 1.9 Carboxyhemoglobin Total Hemoglobin POC Sodium Sodium 131 L POC Potassium Potassium 6.0 H* POC Chloride Chloride 93 L Carbon Dioxide 6 L* POC Total CO2 Anion Gap 32.0 H POC BUN BUN 38 H Creatinine 1.8 H POC Creatinine GFR Calculation 32 Glucose 450 H POC Glucose Hemoglobin A1c 9.6 H Estim Average Glucose 229 Uric Acid Calcium 8.7 POC WB Ioniz Calcium Phosphorus Magnesium Total Bilirubin 0.4 Direct Bilirubin GGT AST 26 ALT 15 Alkaline Phosphatase 160 H Lactate Dehydrogenase Total Protein 8.0 Albumin 4.4 Globulin 3.6 Albumin/Globulin Ratio 1.2 Triglycerides Lipase 298 H Beta-Hydroxybutyrate 6.77 H Procalcitonin Urine Color Urine Appearance Urine pH Ur Specific [place] Urine Protein Urine Glucose (UA) Urine Ketones Urine Occult Blood Urine Nitrate Urine Bilirubin Urine Urobilinogen Ur Leukocyte Esterase Urine RBC Urine WBC Ur Squamous Epith Cells Ur Transition Epith Cell Urine Bacteria Hyaline Casts Urine Mucus Urine Yeast (Budding) Ur Culture Indicated? Preliminary micro results at discharge 10/20/20 13:50 Urine Culture - Preliminary Urine - Clean Void [place] Discharge Plan Patient/Caregiver Discharge Instructions Activity: increase activity as tolerated Diet: Consistent Carbohydrate Instructions: Diabetic Gastroparesis (GEN), Diabetic Ketoacidosis (GEN), Meal Planning with Diabetes Exchanges (GEN), Acute Nausea and Vomiting (GEN) Activity Restrictions/Additional Instructions: Referral to see general surgery 1-2 weeks for biliary colic ----A referral has been sent, they will contact you after discharge to schedule an appointment. This discharge packet is provided to you to help keep you informed about your care. We want to ensure you get everything you need when you go home. You will also be receiving a call from us in a few days to follow up with you and see how you are doing since your discharge. This gives us a chance to listen to any concerns you maybe experiencing since you were discharged or any additional needs you may have, as well as providing us feedback on your care experience. We strive to always provide excellent care and thank you for your feedback and for choosing [facility]. Prescriptions: New Tresiba FlexTouch U-100 100 unit/mL (3 mL) insulin pen 22 unit SUB-Q QDAY Qty: 3 RF: 0 Continued gabapentin 300 mg capsule 600 mg PO TID 30 Days Qty: 180 RF: 2 bupropion HCl [Wellbutrin SR] 150 mg tablet sustained-release 12 hr 150 mg PO BID Qty: 180 RF: 1 paroxetine HCl 20 mg tablet 40 mg PO QDAY RF: 0 ascorbic acid-collagen 1 cap PO QDAY RF: 0 losartan 50 mg tablet 50 mg PO QDAY Qty: 90 RF: 3 metformin 500 mg tablet 1,000 mg PO BID RF: 0 ezetimibe [Zetia] 10 mg tablet 10 mg PO QDAY Qty: 30 RF: 4 (DME) blood-glucose meter Misc See Rx Instructions .ROUTE .MEDSUPPLY Qty: 1 RF: 0 (DME) Blood Glucose Test Strip See Rx Instructions .ROUTE .MEDSUPPLY Qty: 100 RF: 2 Jardiance 10 mg tablet 10 mg PO QAM Qty: 30 RF: 2 hydroxyzine HCl 25 mg Tablet 25 mg PO BID PRN (Reason: Anxiety) RF: 0 Discontinued Tresiba FlexTouch U-100 100 unit/mL (3 mL) insulin pen 20 unit SUB-Q QHS Qty: 15 RF: 1 Follow Up Plan Follow up with: Arlene Colin PA-C [Primary Care Provider] - 10/31/20 1:30 pm (Please check in at 1:15 pm ) Preston Lloyd MD [Physician] - (A referral has been sent, they will contact you to schedule an appoinment.) Patient Disposition: Home, Self-Care Prognosis: Fair Overall status at discharge: patient is progressing back to baseline QUALITY VTE Deep Vein Thrombosis/Pulmonary Embolism Present on Admission: No
[2020-10-21] MEDS ORDERED: MAGNESIUM SULFATE 2 GM/50 ML BAG IV PRN (10:12)
[2020-10-21] MEDS ORDERED: POTASSIUM CHLORIDE 40 MEQ in DEXTROSE 5% IN WATER 500 ML IV PRN (10:12)
[2020-10-21] MEDS ORDERED: hydrOXYzine 25 MG TABLET PO PRN (10:12)
[2020-10-21] MEDS ORDERED: IPRATROPIUM/ALBUTEROL 3 ML AMPUL.NEB NEB PRN (10:12)
[2020-10-21] MEDS ORDERED: INSULIN LISPRO 1 UNIT/0.01 ML UNIT SQ SCH (12:00)
[2020-10-21] MEDS: INSULIN LISPRO 1 UNIT/0.01 ML UNIT SQ SCH ×4 (12:07→23:55)
[2020-10-21] MEDS: metFORMIN 500 MG TABLET PO SCH (16:59)
[2020-10-21] MEDS ORDERED: INSULIN GLARGINE, HUMAN 1 UNIT/0.01 ML SQ SCH (21:00)
[2020-10-21] MEDS: INSULIN DEGLUDEC 100 UNIT/ML SUB-Q SCH ×2 (21:00→21:06)
[2020-10-21] MEDS ORDERED: INSULIN DEGLUDEC SUB-Q SCH ×2 (21:00)
[2020-10-21] MEDS: buPROPion 150 MG TAB.SR.12H PO SCH (21:06)
[2020-10-21] MEDS: ACETAMINOPHEN 325 MG TABLET PO PRN (22:01)
[2020-10-22] MEDS: 0.9 % SODIUM CHLORIDE 10 ML SYRINGE IV SCH ×3 (05:34→21:47)
[2020-10-22] MEDS: INSULIN LISPRO 1 UNIT/0.01 ML UNIT SQ SCH ×5 (05:34→20:11)
[2020-10-22] MEDS: PIPERACILLIN SODIUM/TAZOBACTAM 3.375 GM in DEXTROSE 5% IN WATER 50 ML IV SCH ×3 (05:51→17:25)
[2020-10-22 07:07] LABS: ALT/SGPT 15 U/L (<40); AST/SGOT 20 U/L (<32); Albumin 3.5 gm/dL (3.2-5.2); Albumin/Globulin Ratio 1.4 (1.0-2.3); Alkaline Phosphatase 106 U/L (39-117); Basophils # (Auto) 0.02 K/mcL (0.00-0.20); Basophils % (Auto) 0.2 % (0.0-2.0); Bilirubin,Direct < 0.2 mg/dL (<0.3); Bilirubin,Total 0.4 mg/dL (0.1-1.0); Blood Urea Nitrogen 13 mg/dL (6-20); Calcium 8.4 mg/dL (8.6-10.4); Carbon Dioxide 14 mmol/L (22-30); Chloride 105 mmol/L (96-108); Eosinophils # (Auto) 0 K/mcL (0.00-0.70); Eosinophils % (Auto) 0 % (0.0-7.0); Globulin 2.5 gm/dL (2.2-3.7); Glomerular Filtration Rate 86; Glucose 113 mg/dL (70-105); Hematocrit 38.9 % (36.0-48.0); Hemoglobin 13.1 g/dL (12.0-15.0); Lactate Dehydrogenase 205 U/L (135-225); Lymphocytes # (Auto) 2.45 K/mcL (1.50-4.80); Lymphocytes % (Auto) 18.8 % (15.0-49.0); Mean Cell Volume 85.3 fL (80.0-100.0); Mean Corpuscular HGB Conc 33.7 g/dL (31.0-36.0); Monocytes # (Auto) 0.68 K/mcL (0.10-0.90); Monocytes % (Auto) 5.2 % (1.0-12.0); Neutrophils % (Auto) 75.8 % (38.0-78.0); Phosphorous 1.8 mg/dL (2.5-4.5); Platelet Count 251 K/mcL (140-440); RBC 4.56 M/mcL (4.00-5.20); Red Cell Distribution Width 13.7 % (11.5-14.5); Triglycerides 139 mg/dL (<150); Uric Acid 5.3 mg/dL (2.5-8.0)
[2020-10-22] MEDS: DOCUSATE SODIUM 100 MG CAPSULE PO SCH ×2 (07:18→20:59)
--- NOTE | 2020-10-22 07:27 | Internal Med Progress Note ---
SUBJECTIVE Subjective Patient information: Note initiated : 10/22/20 at 7:24 am Service Date, if different from initiated Date: [] Patient: Starla Lopes a 50 y/o F admitted on 10/20/20 for n/v, diabetic. Chief Complaint: [] Interval history: History of present illness: Ms. Lopes is a 50 year old F Presents the ED with nausea vomiting abdominal pain. EMS reported blood sugar 432. Patient states that she has been feeling ill for the past couple days with abdominal discomfort and then nausea vomiting. She has not taken her insulin for couple days since it started. She is abdominal pain is sharp and nonradiating. Sound did show gallbladder stones and I tried to obtain history of whether not she is had biliary colic but hard to get much of history given her lethargy. She is quite acidotic pH 7.17 bicarb of 6. She was hyponatremic pseudo-. And hyperkalemic. An acute injury. Most of these numbers improved on a [id number] 4 hours later. She is given several liters of IV fluid bolus and placed on insulin drip. 10/21 Doing much better. Anion gap closed. More alert. Wean off insulin drip at home insulin. 10/22 Doing much better today. Sugars better controlled. Patient does have nausea but no other complaints. She does report she does get abdominal pain after fatty meals and does notice a difference between fatty meals and bland low-fat meal. Potassium phosphorus low. Review of Systems: denies headache/fever/chills/vomiting/chest or abdominal pain/cough/dyspnea/diarrhea. Otherwise see above. Constitutional Vitals: Vital Signs Temp Pulse Resp BP Pulse Ox 96.9 F L 77 16 135/68 98 10/21/20 23:53 10/21/20 23:53 10/21/20 23:53 10/21/20 23:53 10/21/20 23:53 Period Temp Pulse Resp BP Sys/Montesinos Pulse Ox Last 24 Hr 96.9 F-100.0 F 77-93 - 130-159/55-83 97-100 Intake and Output 10/21/20 10/22/20 10/22/20 21:59 05:59 13:59 Intake Total 50 1050 50 Output Total 850 1450 Balance -800 -400 50 Weight 87.317 kg Intake & Output: Intake & Output 10/21/20 10/22/20 10/22/20 21:59 05:59 13:59 Intake Total 50 1050 50 Output Total 850 1450 Balance -800 -400 50 Weight 87.317 kg Intake: IV 50 1050 50 Sodium Chloride 0.45% 1,000 ml 1000 @ 80 mls/hr IV .[id number] [facility] Rx# :[id number] Zosyn 3.375 gm In Dextrose 5% 50 50 50 in Water 50 ml @ 100 mls/hr IV Q6H [facility] Rx#:[id number] Output: Void Amount 850 550 Urine/Stool Mix 900 Other: Stool Size Small Stool Color Brown Stool Consistency Soft Loose # Bowel Movements 1 Exam: General: awake, No acute Distress, obese Eyes/N/T: EOMI, Head/Neck: neck supple, CV: RRR, No murmurs, Pulm: Clear b/l, no wheezing/rhonchi/rales Abd: soft, nontender, +BS x4 Ext: no clubbing/cyanosis/edema Neuro: alert, no focal deficits, moves all extremities, Skin: warm/dry OBJ DATA Labs CBC & Chem 7: 10/22/20 05:20 10/22/20 05:20 Labs: Abnormal Lab Results 10/22/20 10/22/20 10/22/20 05:20 05:20 05:20 WBC 13.0 H RBC Hgb Hct POC Hct Plt Count Neut % (Auto) Lymph % (Auto) [place] # (Auto) Baso # (Auto) Seg Neutrophils % Lymphocytes % Absolute Neutrophils 9.88 H ABG Methemoglobin VBG Base Excess Carboxyhemoglobin Sodium Potassium 3.2 L POC Chloride Chloride Carbon Dioxide 14 L POC Total CO2 Anion Gap 20.0 H POC BUN BUN Creatinine Glucose 113 H POC Glucose Hemoglobin A1c Uric Acid Calcium 8.4 L POC WB Ioniz Calcium Phosphorus 1.8 L AST Alkaline Phosphatase Lactate Dehydrogenase Triglycerides Lipase Beta-Hydroxybutyrate Procalcitonin 0.29 H Urine Protein Urine Glucose (UA) Urine Ketones Urine Occult Blood Urine RBC Hyaline Casts Urine Mucus Urine Yeast (Budding) 10/21/20 10/21/20 10/21/20 05:26 05:26 05:26 WBC RBC Hgb Hct POC Hct Plt Count Neut % (Auto) Lymph % (Auto) [place] # (Auto) Baso # (Auto) Seg Neutrophils % 88 H Lymphocytes % 8 L Absolute Neutrophils ABG Methemoglobin VBG Base Excess Carboxyhemoglobin Sodium Potassium POC Chloride Chloride 112 H Carbon Dioxide 11 L POC Total CO2 Anion Gap POC BUN BUN Creatinine Glucose 205 H POC Glucose Hemoglobin A1c Uric Acid Calcium 8.0 L POC WB Ioniz Calcium Phosphorus AST 32 H Alkaline Phosphatase Lactate Dehydrogenase 382 H Triglycerides 187 H Lipase Beta-Hydroxybutyrate 2.23 H Procalcitonin 0.52 H Urine Protein Urine Glucose (UA) Urine Ketones Urine Occult Blood Urine RBC Hyaline Casts Urine Mucus Urine Yeast (Budding) 10/21/20 10/21/20 10/20/20 05:26 05:26 22:19 WBC 18.3 H RBC Hgb Hct POC Hct Plt Count Neut % (Auto) Lymph % (Auto) [place] # (Auto) Baso # (Auto) Seg Neutrophils % Lymphocytes % Absolute Neutrophils ABG Methemoglobin 0.1 L VBG Base Excess -13 L Carboxyhemoglobin 4.8 H Sodium Potassium POC Chloride Chloride Carbon Dioxide 11 L POC Total CO2 Anion Gap POC BUN BUN 27 H Creatinine 1.3 H Glucose 297 H POC Glucose Hemoglobin A1c Uric Acid 9.3 H Calcium 7.9 L POC WB Ioniz Calcium Phosphorus AST Alkaline Phosphatase Lactate Dehydrogenase 251 H Triglycerides 194 H Lipase Beta-Hydroxybutyrate Procalcitonin Urine Protein Urine Glucose (UA) Urine Ketones Urine Occult Blood Urine RBC Hyaline Casts Urine Mucus Urine Yeast (Budding) 10/20/20 10/20/20 10/20/20 13:50 13:03 13:03 WBC RBC Hgb Hct POC Hct 49 H Plt Count Neut % (Auto) Lymph % (Auto) [place] # (Auto) Baso # (Auto) Seg Neutrophils % Lymphocytes % Absolute Neutrophils ABG Methemoglobin VBG Base Excess Carboxyhemoglobin Sodium Potassium POC Chloride 112 H Chloride Carbon Dioxide POC Total CO2 10 L Anion Gap POC BUN 37 H BUN Creatinine Glucose POC Glucose 278 H Hemoglobin A1c Uric Acid Calcium POC WB Ioniz Calcium 1.10 L Phosphorus AST Alkaline Phosphatase Lactate Dehydrogenase Triglycerides Lipase Beta-Hydroxybutyrate Procalcitonin 0.98 H Urine Protein 100 A Urine Glucose (UA) >=500 A Urine Ketones 80 A Urine Occult Blood >=1.0 A Urine RBC 32 H Hyaline Casts 4 H Urine Mucus Few A Urine Yeast (Budding) Few A 10/20/20 10/20/20 10/20/20 11:00 11:00 10:38 WBC 45.0 H* RBC 5.77 H Hgb 16.6 H Hct 51.8 H POC Hct Plt Count 479 H Neut % (Auto) 82.7 H Lymph % (Auto) 10.5 L [place] # (Auto) 2.76 H Baso # (Auto) 0.31 H Seg Neutrophils % Lymphocytes % Absolute Neutrophils 37.25 H ABG Methemoglobin VBG Base Excess Carboxyhemoglobin Sodium 131 L Potassium 6.0 H* POC Chloride Chloride 93 L Carbon Dioxide 6 L* POC Total CO2 Anion Gap 32.0 H POC BUN BUN 38 H Creatinine 1.8 H Glucose 450 H POC Glucose Hemoglobin A1c 9.6 H Uric Acid Calcium POC WB Ioniz Calcium Phosphorus AST Alkaline Phosphatase 160 H Lactate Dehydrogenase Triglycerides Lipase 298 H Beta-Hydroxybutyrate 6.77 H Procalcitonin Urine Protein Urine Glucose (UA) Urine Ketones Urine Occult Blood Urine RBC Hyaline Casts Urine Mucus Urine Yeast (Budding) Meds: Medications Acetaminophen (Tylenol) 650 mg PO Q4-6HP PRN PRN Reason: PAIN/FEVER > 101 Last Admin: 10/21/20 22:01 Dose: 650 mg Documented by: Albuterol/Ipratropium (Duoneb) 3 ml NEB Q4HRT PRN PRN Reason: dyspnea Bupropion HCl (Wellbutrin Sr) 150 mg PO BID [facility] Last Admin: 10/21/20 21:06 Dose: 150 mg Documented by: Dextrose (Dextrose 50%) 0 ml IV UD PRN PRN Reason: Hypoglycemia Diagnostic Test (Pha) (Accu-Chek) 1 each FS Q4H [facility] Last Admin: 10/22/20 05:33 Dose: 1 each Documented by: Docusate Sodium (Colace) 100 mg PO BID [facility] Last Admin: 10/22/20 07:18 Dose: Not Given Documented by: Enoxaparin Sodium (Lovenox) 40 mg SQ DAILY [facility] Gabapentin (Neurontin) 600 mg PO TID [facility] Last Admin: 10/21/20 21:06 Dose: 600 mg Documented by: Glucose (Insta-Glucose) 15 gm PO PRN PRN PRN Reason: Hypoglycemia Hydroxyzine HCl (Atarax) 25 mg PO BIDP PRN PRN Reason: Anxiety Magnesium Sulfate (Magnesium Sulfate) 2 gm in 50 mls @ 50 mls/hr IV UD PRN PRN Reason: Magnesium </= 1.6 Piperacillin Sod/Tazobactam (Sod 3.375 gm/ Dextrose) 50 mls @ 100 mls/hr IV Q6H [facility]; Protocol Last Infusion: 10/22/20 06:30 Dose: Infused Documented by: Potassium Chloride 40 meq/ (Dextrose) 520 mls @ 130 mls/hr IV UD PRN PRN Reason: Potassium < 3 Insulin Human Lispro (Humalog) 0 unit SQ Q4 [facility]; Protocol Last Admin: 10/22/20 05:34 Dose: Not Given Documented by: Metformin HCl (Glucophage) 1,000 mg PO BIDCC [facility] Last Admin: 10/21/20 16:59 Dose: 1,000 mg Documented by: Ondansetron HCl (Zofran) 4 mg IV Q4-6HP PRN PRN Reason: Nausea And Vomiting Last Admin: 10/21/20 20:35 Dose: 4 mg Documented by: Paroxetine HCl (Paxil) 40 mg PO QDAY [facility] Insulin Degludec [ Tresiba Flextouch U- 100] 100 Unit/Ml Syringe 25 dose SUB-Q QHS [facility] Last Admin: 10/21/20 21:06 Dose: 25 dose Documented by: Empagliflozin [ Jardiance] 10 Mg Tablet 1 dose PO DAILY [facility] Potassium Chloride (Kdur) 40 meq PO UD PRN PRN Reason: Potssium is 3-3.5 Sodium Chloride (Saline Flush) 10 ml IV Q8 [facility] Last Admin: 10/22/20 05:34 Dose: 10 ml Documented by: ABG Interpretation ABG results: 10/21/20 05:26 ABG Methemoglobin 0.1 L VBG pH 7.28 VBG pCO2 27.2 VBG pO2 74.4 VBG HCO3 12.4 VBG Total CO2 13.2 VBG O2 Saturation 90.6 VBG Base Excess -13 L A/P Narrative A/P Narrative: A: *DKA: ?etiology -A1c 9.6 -UA/CXR unremarkable, u/s no cholecystitis *Anion gap metabolic acidosis: 2/2 above -improved *Encephalopathy (lethargy): 2/2 above -improved *Leukocytosis: no bandemia, Likely reactive versus infectious, afebrile, *Hyperkalemia: Resolved on point of care with IV fluids and insulin *low phos *LAMAR on likely CKD II: -improving *obese: *Biliary colic w/multiple large stones: per pt history and clinical findings * P: -IVF off -insulin gtt to home basal insulin and metformin, SSI -titrate home insulin, cont 25 qhs -monitor electrolytes, replace today -f/u with surgery for symptomatic cholelithiasis -ppx: Lovenox Full code Time Spent With Patient Time: Total time spent is greater than 50% in coordination of care (as documented) at patient's floor/unit and/or counseling patient: QUALITY VTE Deep Vein Thrombosis/Pulmonary Embolism Present on Admission: No
[2020-10-22] MEDS: ONDANSETRON 4 MG/2 ML VIAL IV PRN ×3 (09:00→21:42)
[2020-10-22] MEDS ORDERED: INSULIN DEGLUDEC 100 UNIT/ML SUB-Q SCH (09:00)
[2020-10-22] MEDS: metFORMIN 500 MG TABLET PO SCH ×2 (09:17→17:20)
[2020-10-22] MEDS: GABAPENTIN 300 MG CAPSULE PO SCH ×3 (09:17→21:46)
[2020-10-22] MEDS: ENOXAPARIN 40 MG/0.4 ML SYRINGE SQ SCH (09:18)
[2020-10-22] MEDS: PHOSPHORUS 250 MG TABLET PO SCH ×3 (09:23→21:46)
[2020-10-22] MEDS: SODIUM BICARBONATE 650 MG TABLET PO SCH ×3 (09:23→21:46)
[2020-10-22] MEDS: PARoxetine 20 MG TABLET PO SCH (09:23)
[2020-10-22] MEDS: buPROPion 150 MG TAB.SR.12H PO SCH ×2 (09:23→21:46)
[2020-10-22] MEDS: INSULIN DEGLUDEC 100 UNIT/ML SUB-Q SCH (09:48)
[2020-10-22] MEDS ORDERED: METOCLOPRAMIDE 10 MG/2 ML VIAL IV ONE (10:28)
[2020-10-22] MEDS: METOCLOPRAMIDE 10 MG/2 ML VIAL IV PRN (17:19)
[2020-10-23] MEDS: PIPERACILLIN SODIUM/TAZOBACTAM 3.375 GM in DEXTROSE 5% IN WATER 50 ML IV SCH ×4 (00:06→17:18)
[2020-10-23] MEDS: INSULIN LISPRO 1 UNIT/0.01 ML UNIT SQ SCH ×6 (00:11→20:41)
[2020-10-23] MEDS: 0.9 % SODIUM CHLORIDE 10 ML SYRINGE IV SCH ×3 (05:46→20:42)
[2020-10-23 06:45] LABS: Beta Hydroxybutyrate 2.82 mmol/L (<0.27)
[2020-10-23 07:26] LABS: ALT/SGPT 17 U/L (<40); AST/SGOT 16 U/L (<32); Albumin 3.5 gm/dL (3.2-5.2); Albumin/Globulin Ratio 1.1 (1.0-2.3); Alkaline Phosphatase 98 U/L (39-117); Bilirubin,Direct < 0.2 mg/dL (<0.3); Bilirubin,Total 0.4 mg/dL (0.1-1.0); Blood Urea Nitrogen 9 mg/dL (6-20); Calcium 8.6 mg/dL (8.6-10.4); Carbon Dioxide 19 mmol/L (22-30); Chloride 104 mmol/L (96-108); Globulin 3.1 gm/dL (2.2-3.7); Glomerular Filtration Rate 102; Glucose 113 mg/dL (70-105); Lactate Dehydrogenase 168 U/L (135-225); Triglycerides 148 mg/dL (<150); Uric Acid 4.5 mg/dL (2.5-8.0)
[2020-10-23] MEDS: POTASSIUM CHLORIDE 20 MEQ TABLET PO PRN ×2 (07:31→17:58)
[2020-10-23] MEDS: ONDANSETRON 4 MG/2 ML VIAL IV PRN ×3 (07:36→20:45)
[2020-10-23] MEDS ORDERED: POTASSIUM CHLORIDE 40 MEQ in DEXTROSE 5% IN WATER 500 ML IV ONE (07:41)
--- NOTE | 2020-10-23 07:48 | Internal Med Progress Note ---
SUBJECTIVE Subjective Patient information: Note initiated : 10/23/20 at 7:45 am Service Date, if different from initiated Date: [] Patient: Starla Lopes a 50 y/o F admitted on 10/20/20 for n/v, diabetic. Chief Complaint: [] Interval history: History of present illness: Ms. Lopes is a 50 year old F Presents the ED with nausea vomiting abdominal pain. EMS reported blood sugar 432. Patient states that she has been feeling ill for the past couple days with abdominal discomfort and then nausea vomiting. She has not taken her insulin for couple days since it started. She is abdominal pain is sharp and nonradiating. Sound did show gallbladder stones and I tried to obtain history of whether not she is had biliary colic but hard to get much of history given her lethargy. She is quite acidotic pH 7.17 bicarb of 6. She was hyponatremic pseudo-. And hyperkalemic. An acute injury. Most of these numbers improved on a [id number] 4 hours later. She is given several liters of IV fluid bolus and placed on insulin drip. 10/21 Doing much better. Anion gap closed. More alert. Wean off insulin drip at home insulin. 10/22 Doing much better today. Sugars better controlled. Patient does have nausea but no other complaints. She does report she does get abdominal pain after fatty meals and does notice a difference between fatty meals and bland low-fat meal. Potassium phosphorus low. 10/23 Patient continues to feel better. Sugars controlled. Did increase her basal insulin from 2024 and will cut back to 22. Quite low potassium today and low phosphorus slightly improved we will replete electrolytes 1 more day follow-up labs later today as well. Likely discharge tomorrow. Has continued nausea suspect gastroparesis given acute DKA episode. We will schedule Reglan while she is here. Review of Systems: denies headache/fever/chills/vomiting/chest or abdominal pain/cough/dyspnea/diarrhea. Otherwise see above. Constitutional Vitals: Vital Signs Temp Pulse Resp BP Pulse Ox 97.5 F 64 18 170/78 98 10/23/20 07:32 10/23/20 07:32 10/23/20 07:32 10/23/20 07:32 10/23/20 07:32 Period Temp Pulse Resp BP Sys/Montesinos Pulse Ox Last 24 Hr 96.8 F-97.6 F 64-84 14-20 142-170/69-78 97-99 Intake and Output 10/22/20 10/23/20 10/23/20 21:59 05:59 13:59 Intake Total 1090 1140 50 Output Total 1250 2250 Balance -160 -1110 50 Weight 86.183 kg Intake & Output: Intake & Output 10/22/20 10/23/20 10/23/20 21:59 05:59 13:59 Intake Total 1090 1140 50 Output Total 1250 2250 Balance -160 -1110 50 Weight 86.183 kg Intake: IV 50 50 50 Zosyn 3.375 gm In Dextrose 5% 50 50 50 in Water 50 ml @ 100 mls/hr IV Q6H [facility] Rx#:[id number] Oral 1040 1090 Output: Void Amount 1250 Urine/Stool Mix 1250 1000 Other: Meal Nourishment/Supplement Percent of Meal Consumed 100% Nourishment/Supplement name popsicle Urine Appearance Clear Urine Color Dark Yellow Stool Size Moderate Large Stool Color Brown Green Stool Consistency Loose Loose # Bowel Movements 1 Exam: General: awake, No acute Distress, obese Eyes/N/T: EOMI, Head/Neck: neck supple, CV: RRR, No murmurs, Pulm: Clear b/l, no wheezing/rhonchi/rales Abd: soft, nontender, +BS x4 Ext: no clubbing/cyanosis/edema Neuro: alert, no focal deficits, moves all extremities, Skin: warm/dry OBJ DATA Labs CBC & Chem 7: 10/22/20 05:20 10/23/20 05:10 Labs: Abnormal Lab Results 10/23/20 10/23/20 10/22/20 05:10 05:10 05:20 WBC RBC Hgb Hct POC Hct Plt Count Neut % (Auto) Lymph % (Auto) [place] # (Auto) Baso # (Auto) Seg Neutrophils % Lymphocytes % Absolute Neutrophils ABG Methemoglobin VBG Base Excess Carboxyhemoglobin Sodium Potassium 2.6 L* 3.2 L POC Chloride Chloride Carbon Dioxide 19 L 14 L POC Total CO2 Anion Gap 20.0 H POC BUN BUN Creatinine Glucose 113 H 113 H POC Glucose Hemoglobin A1c Uric Acid Calcium 8.4 L POC WB Ioniz Calcium Phosphorus 2.0 L 1.8 L AST Alkaline Phosphatase Lactate Dehydrogenase Triglycerides Lipase Beta-Hydroxybutyrate 2.82 H Procalcitonin Urine Protein Urine Glucose (UA) Urine Ketones Urine Occult Blood Urine RBC Hyaline Casts Urine Mucus Urine Yeast (Budding) 10/22/20 10/22/20 10/21/20 05:20 05:20 05:26 WBC 13.0 H RBC Hgb Hct POC Hct Plt Count Neut % (Auto) Lymph % (Auto) [place] # (Auto) Baso # (Auto) Seg Neutrophils % 88 H Lymphocytes % 8 L Absolute Neutrophils 9.88 H ABG Methemoglobin VBG Base Excess Carboxyhemoglobin Sodium Potassium POC Chloride Chloride Carbon Dioxide POC Total CO2 Anion Gap POC BUN BUN Creatinine Glucose POC Glucose Hemoglobin A1c Uric Acid Calcium POC WB Ioniz Calcium Phosphorus AST Alkaline Phosphatase Lactate Dehydrogenase Triglycerides Lipase Beta-Hydroxybutyrate Procalcitonin 0.29 H Urine Protein Urine Glucose (UA) Urine Ketones Urine Occult Blood Urine RBC Hyaline Casts Urine Mucus Urine Yeast (Budding) 10/21/20 10/21/20 10/21/20 05:26 05:26 05:26 WBC 18.3 H RBC Hgb Hct POC Hct Plt Count Neut % (Auto) Lymph % (Auto) [place] # (Auto) Baso # (Auto) Seg Neutrophils % Lymphocytes % Absolute Neutrophils ABG Methemoglobin VBG Base Excess Carboxyhemoglobin Sodium Potassium POC Chloride Chloride 112 H Carbon Dioxide 11 L POC Total CO2 Anion Gap POC BUN BUN Creatinine Glucose 205 H POC Glucose Hemoglobin A1c Uric Acid Calcium 8.0 L POC WB Ioniz Calcium Phosphorus AST 32 H Alkaline Phosphatase Lactate Dehydrogenase 382 H Triglycerides 187 H Lipase Beta-Hydroxybutyrate 2.23 H Procalcitonin 0.52 H Urine Protein Urine Glucose (UA) Urine Ketones Urine Occult Blood Urine RBC Hyaline Casts Urine Mucus Urine Yeast (Budding) 10/21/20 10/20/20 10/20/20 05:26 22:19 13:50 WBC RBC Hgb Hct POC Hct Plt Count Neut % (Auto) Lymph % (Auto) [place] # (Auto) Baso # (Auto) Seg Neutrophils % Lymphocytes % Absolute Neutrophils ABG Methemoglobin 0.1 L VBG Base Excess -13 L Carboxyhemoglobin 4.8 H Sodium Potassium POC Chloride Chloride Carbon Dioxide 11 L POC Total CO2 Anion Gap POC BUN BUN 27 H Creatinine 1.3 H Glucose 297 H POC Glucose Hemoglobin A1c Uric Acid 9.3 H Calcium 7.9 L POC WB Ioniz Calcium Phosphorus AST Alkaline Phosphatase Lactate Dehydrogenase 251 H Triglycerides 194 H Lipase Beta-Hydroxybutyrate Procalcitonin Urine Protein 100 A Urine Glucose (UA) >=500 A Urine Ketones 80 A Urine Occult Blood >=1.0 A Urine RBC 32 H Hyaline Casts 4 H Urine Mucus Few A Urine Yeast (Budding) Few A 10/20/20 10/20/20 10/20/20 13:03 13:03 11:00 WBC 45.0 H* RBC 5.77 H Hgb 16.6 H Hct 51.8 H POC Hct 49 H Plt Count 479 H Neut % (Auto) 82.7 H Lymph % (Auto) 10.5 L [place] # (Auto) 2.76 H Baso # (Auto) 0.31 H Seg Neutrophils % Lymphocytes % Absolute Neutrophils 37.25 H ABG Methemoglobin VBG Base Excess Carboxyhemoglobin Sodium Potassium POC Chloride 112 H Chloride Carbon Dioxide POC Total CO2 10 L Anion Gap POC BUN 37 H BUN Creatinine Glucose POC Glucose 278 H Hemoglobin A1c Uric Acid Calcium POC WB Ioniz Calcium 1.10 L Phosphorus AST Alkaline Phosphatase Lactate Dehydrogenase Triglycerides Lipase Beta-Hydroxybutyrate Procalcitonin 0.98 H Urine Protein Urine Glucose (UA) Urine Ketones Urine Occult Blood Urine RBC Hyaline Casts Urine Mucus Urine Yeast (Budding) 10/20/20 10/20/20 11:00 10:38 WBC RBC Hgb Hct POC Hct Plt Count Neut % (Auto) Lymph % (Auto) [place] # (Auto) Baso # (Auto) Seg Neutrophils % Lymphocytes % Absolute Neutrophils ABG Methemoglobin VBG Base Excess Carboxyhemoglobin Sodium 131 L Potassium 6.0 H* POC Chloride Chloride 93 L Carbon Dioxide 6 L* POC Total CO2 Anion Gap 32.0 H POC BUN BUN 38 H Creatinine 1.8 H Glucose 450 H POC Glucose Hemoglobin A1c 9.6 H Uric Acid Calcium POC WB Ioniz Calcium Phosphorus AST Alkaline Phosphatase 160 H Lactate Dehydrogenase Triglycerides Lipase 298 H Beta-Hydroxybutyrate 6.77 H Procalcitonin Urine Protein Urine Glucose (UA) Urine Ketones Urine Occult Blood Urine RBC Hyaline Casts Urine Mucus Urine Yeast (Budding) Meds: Medications Acetaminophen (Tylenol) 650 mg PO Q4-6HP PRN PRN Reason: PAIN/FEVER > 101 Last Admin: 10/21/20 22:01 Dose: 650 mg Documented by: Albuterol/Ipratropium (Duoneb) 3 ml NEB Q4HRT PRN PRN Reason: dyspnea Bupropion HCl (Wellbutrin Sr) 150 mg PO BID [facility] Last Admin: 10/22/20 21:46 Dose: 150 mg Documented by: Dextrose (Dextrose 50%) 0 ml IV UD PRN PRN Reason: Hypoglycemia Diagnostic Test (Pha) (Accu-Chek) 1 each FS Q4H [facility] Last Admin: 10/23/20 07:31 Dose: 1 each Documented by: Docusate Sodium (Colace) 100 mg PO BID [facility] Last Admin: 10/22/20 20:59 Dose: Not Given Documented by: Enoxaparin Sodium (Lovenox) 40 mg SQ DAILY [facility] Last Admin: 10/22/20 09:18 Dose: 40 mg Documented by: Gabapentin (Neurontin) 600 mg PO TID [facility] Last Admin: 10/22/20 21:46 Dose: 600 mg Documented by: Glucose (Insta-Glucose) 15 gm PO PRN PRN PRN Reason: Hypoglycemia Hydroxyzine HCl (Atarax) 25 mg PO BIDP PRN PRN Reason: Anxiety Magnesium Sulfate (Magnesium Sulfate) 2 gm in 50 mls @ 50 mls/hr IV UD PRN PRN Reason: Magnesium </= 1.6 Piperacillin Sod/Tazobactam (Sod 3.375 gm/ Dextrose) 50 mls @ 100 mls/hr IV Q6H [facility]; Protocol Last Infusion: 10/23/20 06:16 Dose: Infused Documented by: Potassium Chloride 40 meq/ (Dextrose) 520 mls @ 130 mls/hr IV UD PRN PRN Reason: Potassium < 3 Potassium Chloride 40 meq/ (Dextrose) 520 mls @ 130 mls/hr IV ONCE ONE Stop: 10/23/20 11:40 Potassium Chloride 20 meq/ (Dextrose) 260 mls @ 130 mls/hr IV ONCE ONE Stop: 10/23/20 09:40 Insulin Human Lispro (Humalog) 0 unit SQ Q4 [facility]; Protocol Last Admin: 10/23/20 07:35 Dose: Not Given Documented by: Metformin HCl (Glucophage) 1,000 mg PO BIDCC [facility] Last Admin: 10/22/20 17:20 Dose: 1,000 mg Documented by: Metoclopramide HCl (Reglan) 10 mg IV Q6HP PRN PRN Reason: Nausea And Vomiting Last Admin: 10/22/20 17:19 Dose: 10 mg Documented by: Ondansetron HCl (Zofran) 4 mg IV Q4-6HP PRN PRN Reason: Nausea And Vomiting Last Admin: 10/23/20 07:36 Dose: 4 mg Documented by: Paroxetine HCl (Paxil) 40 mg PO QDAY [facility] Last Admin: 10/22/20 09:23 Dose: 40 mg Documented by: Empagliflozin [ Jardiance] 10 Mg Tablet 1 dose PO DAILY [facility] Last Admin: 10/22/20 09:17 Dose: 1 dose Documented by: Insulin Degludec [ Tresiba Flextouch U- 100] 100 Unit/Ml Syringe 25 dose SUB-Q DAILY [facility] Last Admin: 10/22/20 09:54 Dose: Not Given Documented by: Potassium Chloride (Kdur) 40 meq PO UD PRN PRN Reason: Potssium is 3-3.5 Last Admin: 10/23/20 07:31 Dose: 40 meq Documented by: Sodium Bicarbonate (Sodium Bicarbonate) 1,300 mg PO BID [facility] Stop: 10/24/20 09:01 Sodium Chloride (Saline Flush) 10 ml IV Q8 [facility] Last Admin: 10/23/20 05:46 Dose: 10 ml Documented by: Sodium Phosphate (Pot Phosphate Neutral) 250 mg PO BID [facility] Stop: 10/23/20 21:01 ABG Interpretation ABG results: 10/21/20 05:26 ABG Methemoglobin 0.1 L VBG pH 7.28 VBG pCO2 27.2 VBG pO2 74.4 VBG HCO3 12.4 VBG Total CO2 13.2 VBG O2 Saturation 90.6 VBG Base Excess -13 L A/P Narrative A/P Narrative: A: *DKA: ?etiology -A1c 9.6 -UA/CXR unremarkable, u/s no cholecystitis *Anion gap metabolic acidosis: 2/2 above -improved *Encephalopathy (lethargy): 2/2 above -improved *Leukocytosis: no bandemia, Likely reactive versus infectious, afebrile, *Hyperkalemia: Resolved on point of care with IV fluids and insulin -now hypokalemia *Hypomag/hypophos: *LAMAR on likely CKD II: -improved *obese: *Biliary colic w/multiple large stones: per pt history and clinical findings -no cholecystitis on imaging * P: -replete electrolytes -cont home basal insulin, change to 22u/day -reglan for nausea, suspect some acute gastroparesis -f/u with surgery for symptomatic cholelithiasis -ppx: Lovenox Full code Time Spent With Patient Time: Total time spent is greater than 50% in coordination of care (as docum ented) at patient's floor/unit and/or counseling patient: QUALITY VTE Deep Vein Thrombosis/Pulmonary Embolism Present on Admission: No
[2020-10-23] MEDS: METOCLOPRAMIDE 10 MG/2 ML VIAL IV PRN (08:13)
[2020-10-23] MEDS ORDERED: PROMETHAZINE 25 MG/ML VIAL IV PRN (08:20)
[2020-10-23] MEDS: metFORMIN 500 MG TABLET PO SCH ×2 (09:23→16:29)
[2020-10-23] MEDS: PARoxetine 20 MG TABLET PO SCH (09:23)
[2020-10-23] MEDS: DOCUSATE SODIUM 100 MG CAPSULE PO SCH ×3 (09:23→19:39)
[2020-10-23] MEDS: GABAPENTIN 300 MG CAPSULE PO SCH ×3 (09:23→20:42)
[2020-10-23] MEDS: buPROPion 150 MG TAB.SR.12H PO SCH ×2 (09:23→20:42)
[2020-10-23] MEDS: PHOSPHORUS 250 MG TABLET PO SCH ×2 (09:23→20:42)
[2020-10-23] MEDS: SODIUM BICARBONATE 650 MG TABLET PO SCH ×2 (09:24→20:42)
[2020-10-23] MEDS: ENOXAPARIN 40 MG/0.4 ML SYRINGE SQ SCH (09:24)
[2020-10-23] MEDS: INSULIN DEGLUDEC 100 UNIT/ML SUB-Q SCH (09:25)
[2020-10-23] MEDS ORDERED: POTASSIUM CHLORIDE 20 MEQ in DEXTROSE 5% IN WATER 250 ML IV ONE (12:00)
[2020-10-23] MEDS: METOCLOPRAMIDE 10 MG TABLET PO SCH ×2 (12:15→16:28)
[2020-10-23] MEDS ORDERED: hydrALAZINE 20 MG/ML VIAL IV PRN (16:47)
[2020-10-23] MEDS: LOSARTAN 50 MG TABLET PO SCH (16:56)
[2020-10-23] MEDS: ACETAMINOPHEN 325 MG TABLET PO PRN (16:59)
[2020-10-23 17:20] LABS: POC Blood Urea Nitrogen 5 mg/dL (6-20); POC CO2 20 mmol/L (22-30); POC Calcium, Ionized 1.21 mmEq/L (1.16-1.32); POC Chloride 104 mEq/L (96-108); POC Creatinine 0.5 mg/dL (0.6-1.2); POC Glucose, Random 183 mg/dL (70-105); POC Hematocrit 39 % (36-48); POC Potassium 3.2 mEql/L (3.3-5.1); POC Sodium 138 mEq/L (133-145)
[2020-10-24] MEDS: PIPERACILLIN SODIUM/TAZOBACTAM 3.375 GM in DEXTROSE 5% IN WATER 50 ML IV SCH ×3 (00:08→11:09)
[2020-10-24] MEDS: INSULIN LISPRO 1 UNIT/0.01 ML UNIT SQ SCH ×4 (00:33→11:49)
[2020-10-24] MEDS: 0.9 % SODIUM CHLORIDE 10 ML SYRINGE IV SCH (05:46)
[2020-10-24] MEDS: ONDANSETRON 4 MG/2 ML VIAL IV PRN ×2 (06:39→11:53)
[2020-10-24 07:04] LABS: ALT/SGPT 14 U/L (<40); AST/SGOT 14 U/L (<32); Albumin 3.4 gm/dL (3.2-5.2); Albumin/Globulin Ratio 1.1 (1.0-2.3); Alkaline Phosphatase 106 U/L (39-117); Bilirubin,Direct < 0.2 mg/dL (<0.3); Bilirubin,Total 0.4 mg/dL (0.1-1.0); Blood Urea Nitrogen 6 mg/dL (6-20); Carbon Dioxide 23 mmol/L (22-30); Chloride 104 mmol/L (96-108); Globulin 3.2 gm/dL (2.2-3.7); Glomerular Filtration Rate 107; Glucose 115 mg/dL (70-105); Lactate Dehydrogenase 180 U/L (135-225); Phosphorous 2.3 mg/dL (2.5-4.5); Triglycerides 160 mg/dL (<150); Uric Acid 2.9 mg/dL (2.5-8.0)
[2020-10-24] MEDS: METOCLOPRAMIDE 10 MG TABLET PO SCH ×2 (07:40→11:09)
[2020-10-24] MEDS: metFORMIN 500 MG TABLET PO SCH (07:41)
[2020-10-24] MEDS: DOCUSATE SODIUM 100 MG CAPSULE PO SCH (09:09)
[2020-10-24] MEDS: LOSARTAN 50 MG TABLET PO SCH (09:09)
[2020-10-24] MEDS: POTASSIUM CHLORIDE 20 MEQ TABLET PO PRN (09:10)
[2020-10-24] MEDS: SODIUM BICARBONATE 650 MG TABLET PO SCH (09:10)
[2020-10-24] MEDS: GABAPENTIN 300 MG CAPSULE PO SCH (09:11)
[2020-10-24] MEDS: buPROPion 150 MG TAB.SR.12H PO SCH (09:11)
[2020-10-24] MEDS: PARoxetine 20 MG TABLET PO SCH (09:11)
[2020-10-24] MEDS: ENOXAPARIN 40 MG/0.4 ML SYRINGE SQ SCH (09:12)
[2020-10-24] MEDS: INSULIN DEGLUDEC 100 UNIT/ML SUB-Q SCH (09:21)
--- NOTE | 2020-10-24 11:36 | Discharge Summary ---
Discharge Provider Provider Patient information: Note initiated : 10/24/20 at 11:33 am Service Date, if different from initiated Date: [] Patient: Starla Lopes a 50 y/o F admitted on 10/20/20 for n/v, diabetic. Discharge diagnosis *DKA-A1c 9.6,-UA/CXR unremarkable, u/s no cholecystitis. Clinically improved with aggressive management per protocol. Now tolerating oral diet/subcu insulin *Anion gap metabolic acidosis: 2/2 above -improved *Encephalopathy (lethargy): 2/2 above -improved *Leukocytosis: no bandemia, Likely reactive versus infectious, afebrile, off antibiotics *Hyperkalemia/low magnesium and phosphorus resolved with replacement: *LAMAR on likely CKD II: -improved *obese: With a BMI 34. Ongoing directed therapies *Biliary colic w/multiple large stones: per pt history and clinical findings-no cholecystitis on imaging. Schedule outpatient follow-up with surgery for evaluation. Brief hospital course Ms. Lopes is a 50 year old F Presents the ED with nausea vomiting abdominal pain. EMS reported blood sugar 432. Patient states that she has been feeling ill for the past couple days with abdominal discomfort and then nausea vomiting. She has not taken her insulin for couple days since it started. She is abdominal pain is sharp and nonradiating. Sound did show gallbladder stones and I tried to obtain history of whether not she is had biliary colic but hard to get much of history given her lethargy. She is quite acidotic pH 7.17 bicarb of 6. She was hyponatremic pseudo-. And hyperkalemic. An acute injury. Most of these numbers improved on a [id number] 4 hours later. She is given several liters of IV fluid bolus and placed on insulin drip. 10/21 Doing much better. Anion gap closed. More alert. Wean off insulin drip at home insulin. 10/22 Doing much better today. Sugars better controlled. Patient does have nausea but no other complaints. She does report she does get abdominal pain after fatty meals and does notice a difference between fatty meals and bland low-fat meal. Potassium phosphorus low. 10/23 Patient continues to feel better. Sugars controlled. Did increase her basal insulin from 2024 and will cut back to 22. Quite low potassium today and low phosphorus slightly improved we will replete electrolytes 1 more day follow-up labs later today as well. Likely discharge tomorrow. Has continued nausea suspect gastroparesis given acute DKA episode. We will schedule Reglan while she is here. 10/24 -patient doing well. DKA resolved. Electrolytes improved. Tolerating diet. Transition to subcutaneous insulin. Discharging home advised to follow- up with surgery on Tuesday/continue antiemetics and maintain hydration. Date of admission: 10/20/20 16:40 Discharge date: 10/24/20 Primary care physician: Arlene Colin PA-C Consults: 10/20/20 Consult to Physician [CONS] Stat Comment: Consulting Provider: Nirmal Garcia Reason For Exam: Physician to Consult Discharge Meds Discharge Medications Home Medications ascorbic acid-collagen 1 cap PO QDAY 04/28/20 [History Confirmed 10/20/20 Last Taken Unknown] losartan 50 mg tablet 50 mg PO QDAY #90 tab 04/28/20 [Rx Confirmed 10/20/20 Last Taken Unknown] gabapentin 300 mg capsule 600 mg PO TID 30 Days #180 cap 05/15/20 [Rx Confirmed 10/20/20 Last Taken Unknown] blood sugar diagnostic #100 each 07/17/20 [Rx Confirmed 10/21/20 Last Taken Unknown] blood-glucose meter #1 each 07/17/20 [Rx Confirmed 10/21/20 Last Taken Unknown] empagliflozin 10 mg tablet 10 mg PO QAM #30 tab 07/17/20 [Rx Confirmed 10/20/20 Last Taken Unknown] ezetimibe 10 mg tablet 10 mg PO QDAY #30 tab 07/17/20 [Rx Confirmed 10/20/20 Last Taken Unknown] metformin 500 mg tablet 1,000 mg PO BID tab 07/17/20 [History Confirmed 10/20/20 Last Taken Unknown] paroxetine HCl 20 mg tablet 40 mg PO QDAY tab 07/17/20 [History Confirmed 10/20/20 Last Taken Unknown] bupropion HCl 150 mg tablet,12 hr sustained-release 150 mg PO BID #180 each 09/22/20 [Rx Confirmed 10/20/20 Last Taken Unknown] hydroxyzine HCl 25 mg PO BID PRN 10/20/20 [History Confirmed 10/20/20 Last Taken Unknown] insulin degludec [Tresiba FlexTouch U-100] 22 unit SUB-Q QDAY #3 ml 10/23/20 [Rx Last Taken Unknown] ondansetron HCl [Zofran] 4 mg PO Q8H PRN #60 tab 10/24/20 [Rx Last Taken Unknown] COURSE Hospital Course Hospital course: . Discharge diagnosis: DKA Time Spent with Patient Time attestation: Total time spent providing and/or coordinating discharge services: EXAM Constitutional Vitals: Temp Pulse Resp BP Pulse Ox 96.7 F L 69 18 171/89 97 10/24/20 08:00 10/24/20 04:29 10/24/20 08:00 10/24/20 08:00 10/24/20 08:00 Discharge Data Data Completed and Pending Labs on day of discharge: Labs from last 24 hours 10/24/20 10/23/20 05:07 17:10 POC Hct 39 POC Sodium 138 Sodium 140 POC Potassium 3.2 L Potassium 3.3 POC Chloride 104 Chloride 104 Carbon Dioxide 23 POC Total CO2 20 L Anion Gap 13.0 POC BUN 5 L BUN 6 Creatinine 0.6 POC Creatinine 0.5 L GFR Calculation 107 Glucose 115 H POC Glucose 183 H Uric Acid 2.9 Calcium 9.0 POC WB Ioniz Calcium 1.21 Phosphorus 2.3 L Magnesium 1.9 Total Bilirubin 0.4 Direct Bilirubin < 0.2 GGT 35 AST 14 ALT 14 Alkaline Phosphatase 106 Lactate Dehydrogenase 180 Total Protein 6.6 Albumin 3.4 Globulin 3.2 Albumin/Globulin Ratio 1.1 Triglycerides 160 H Preliminary micro results at discharge 10/20/20 15:30 Blood Culture - Preliminary Blood 10/20/20 15:18 Blood Culture - Preliminary Blood Discharge Plan Patient/Caregiver Discharge Instructions Activity: increase activity as tolerated Diet: Consistent Carbohydrate Instructions: Diabetic Gastroparesis (GEN), Diabetic Ketoacidosis (GEN), Acute Nausea and Vomiting (GEN) Activity Restrictions/Additional Instructions: Referral to see general surgery 1-2 weeks for biliary colic ----A referral has been sent, they will contact you after discharge to schedule an appointment. Continue diabetic diet This discharge packet is provided to you to help keep you informed about your care. We want to ensure you get everything you need when you go home. You will also be receiving a call from us in a few days to follow up with you and see how you are doing since your discharge. This gives us a chance to listen to any concerns you maybe experiencing since you were discharged or any additional needs you may have, as well as providing us feedback on your care experience. We strive to always provide excellent care and thank you for your feedback and for choosing [facility]. Prescriptions: New Tresiba FlexTouch U-100 100 unit/mL (3 mL) insulin pen 22 unit SUB-Q QDAY Qty: 3 RF: 0 ondansetron HCl [Zofran] 4 mg tablet 4 mg PO Q8H PRN (Reason: nausea and vomiting) Qty: 60 RF: 0 Continued gabapentin 300 mg capsule 600 mg PO TID 30 Days Qty: 180 RF: 2 bupropion HCl [Wellbutrin SR] 150 mg tablet sustained-release 12 hr 150 mg PO BID Qty: 180 RF: 1 paroxetine HCl 20 mg tablet 40 mg PO QDAY RF: 0 ascorbic acid-collagen 1 cap PO QDAY RF: 0 losartan 50 mg tablet 50 mg PO QDAY Qty: 90 RF: 3 metformin 500 mg tablet 1,000 mg PO BID RF: 0 ezetimibe [Zetia] 10 mg tablet 10 mg PO QDAY Qty: 30 RF: 4 (DME) blood-glucose meter Misc See Rx Instructions .ROUTE .MEDSUPPLY Qty: 1 RF: 0 (DME) Blood Glucose Test Strip See Rx Instructions .ROUTE .MEDSUPPLY Qty: 100 RF: 2 Jardiance 10 mg tablet 10 mg PO QAM Qty: 30 RF: 2 hydroxyzine HCl 25 mg Tablet 25 mg PO BID PRN (Reason: Anxiety) RF: 0 Discontinued Tresiba FlexTouch U-100 100 unit/mL (3 mL) insulin pen 20 unit SUB-Q QHS Qty: 15 RF: 1 Follow Up Plan Follow up with: Arlene Colin PA-C [Primary Care Provider] - 10/31/20 1:30 pm (Please check in at 1:15 pm ) Preston Lloyd MD [Physician] - 10/27/20 9:00 am () Patient Disposition: Home, Self-Care Prognosis: Fair Rehab Potential: Fair I certify that the patient requires SNF services: No Overall status at discharge: patient is progressing back to baseline Discharge Orders: Discharge Order (Routine); Ordered 10/24/20 Ordered By: Daniel VILLEGAS VTE Deep Vein Thrombosis/Pulmonary Embolism Present on Admission: No
[2020-10-24] MEDS ORDERED: INSULIN DEGLUDEC 100 UNIT/ML SUB-Q SCH (21:00)
== END 2020-10-24 12:15 | disposition home or self-care (01) | DRG 637 ==
LOC: ED 10:32 → ICU 16:40
PROVIDERS: ADMIT Internal Medicine; ATTEND Internal Medicine